=== PATIENT | male | born 1930 | race Caucasian/White ===

== ENCOUNTER 2017-03-19 10:50 | Emergency (ER) | payer MEDICARE ==
[~2017-03-19] VITALS: Ht 172.7 cm; Wt 72.6 kg
[~2017-03-19 10:50] MED LIST: HYDR1TAB8 OP
[2017-03-19] MEDS ORDERED: LATA2.5D5 (12:16)
--- NOTE | 2017-03-19 13:43 | ED General ---
General Chief Complaint: Upper Extremity Stated Complaint: R SIDE SHOULDER AND MID BACK PAIN Nursing Triage Note: pt reports he fell yesterday morning at 1000. he tripped over a chair et flipped on his back. c/o pain between shoulder blades. Nursing Sepsis Screen: No Definite Risk Source of Information: Patient Exam Limitations: No Limitations History of Present Illness Time Seen by Provider: 13:38 Initial Comments The patient's an 86-year-old white male who presents to the emergency room with a chief complaint of thoracic back pain. He reports that yesterday in his home he tripped over a chair and fell heavily onto his back. This occurred at mid morning. He did not believe himself to be injured at that point in time however when he went to bed he experienced considerable pain in the mid thoracic area and found it difficult to sleep except on his side. The pain has continued today and he came here for further evaluation. He reports that his health has been remarkably good and he takes no medications Timing/Duration: 24 Hours Allergies and Home Medications Allergies Coded Allergies: No Known Drug Allergies (Unverified , 09/08/13) Home Medications Latanoprost 2.5 Ml Drops, #3 (Reported) Constitutional: see HPI EENTM: no symptoms reported Respiratory: no symptoms reported Cardiovascular: no symptoms reported Gastrointestinal: no symptoms reported Genitourinary: no symptoms reported Musculoskeletal: no symptoms reported Skin: no symptoms reported Psychiatric/Neurological: No Symptoms Reported Hematologic/Lymphatic: No Symptoms Reported Immunological/Allergic: no symptoms reported Past Kzqfjji-Lhlzkl-Ougecj Hx Patient Social History Recent Foreign Travel: No Contact w/Someone Who Travel: No Recent Infectious Disease Expo: No Immunizations Up To Date Date of Pneumonia Vaccine: Jul 05, 2011 Date of Influenza Vaccine: Aug 07, 2013 Surgeries HX Surgeries: Yes Respiratory Hx Respiratory Disorders: No Cardiovascular Hx Cardiac Disorders: No Neurological Hx Neurological Disorders: Yes (RESTLESS LEG SYNDROME) Genitourinary Hx Genitourinary Disorders: No Gastrointestinal Hx Gastrointestinal Disorders: No Musculoskeletal Hx Musculoskeletal Disorders: Yes (CERVICAL SPINE--S/P SURGERY) Musculoskeletal Disorders: Arthritis, Back Injury Endocrine Hx Endocrine Disorders: No HEENT HX ENT Disorders: Yes HEENT Disorders: Glaucoma Cancer Hx Cancer: No Psychosocial Hx Psychiatric Problems: No Integumentary HX Skin/Integumentary Disorder: No Blood Transfusions Hx Blood Disorders: No Adverse Reaction to a Blood Tr: No Physical Exam Vital Signs Vital Sign - Last 12Hours 03/19/17 12:12 Temp 97.1 Pulse 80 Resp 19 B/P (MAP) 192/84 Capillary Refill : Less Than 3 Seconds General Appearance: Mild Distress Eyes: Bilateral Eye Normal Inspection HEENT: Normal ENT Inspection Neck: Normal Inspection Respiratory: Chest Non Tender, Lungs Clear, Normal Breath Sounds, No Accessory Muscle Use, No Respiratory Distress Cardiovascular: Regular Rate, Rhythm, No Edema, No Gallop, No JVD, No Murmur, Normal Peripheral Pulses Back: Other Progress/Results/Core Measures Results/Orders My Orders Orders - WILLIE HORNE MD Chest Pa/Lat (2 View) (03/19/17 13:05) Vital Signs/I&O Vital Sign - Last 12Hours 03/19/17 12:12 Temp 97.1 Pulse 80 Resp 19 B/P (MAP) 192/84 Blood Pressure Mean: 120 Departure Communication Progress Notes 1415 lateral chest x-ray shows no evidence of compression fractures. Chest x- ray in general shows no evidence of rib fractures. Impression Impression: Primary Impression: upper back contusion Disposition: 01 HOME, SELF-CARE Condition: Stable/Unchanged Departure-Patient Inst. Decision time for Depature: 14:15 Referrals: SAM EMERY MD (PCP/Family) Primary Care Physician Patient Instructions: Contusion (DC) Add. Discharge Instructions: All discharge instructions reviewed with patient and/or family. Voiced understanding. Use heating pad to area as needed. Ibuprofen 600 mg 3 times daily as needed WILLIE HORNE MD March 19, 2017 13:43
--- NOTE | 2017-03-19 13:45 | Diagnostic Imaging Report ---
INDICATION: Fall. Pain. COMPARISON: 09/08/2013. FINDINGS: 2 views of the chest are obtained. Heart size is normal. The pulmonary vessels appear unremarkable. There is no pneumothorax, mediastinal widening, or pleural fluid demonstrated. The lungs appear clear. There are degenerative changes in the spine. No acute fracture is suspected. IMPRESSION: No radiographic evidence of an acute cardiopulmonary abnormality. Dictated by: Dictated on workstation # [id number]
[2017-03-19 14:40] VITALS: BP 182/75
== END 2017-03-19 14:40 | disposition home or self-care (01) ==
LOC: EDUNIT# 10:50 → ER 10:53
DX: S20.221A Contusion of right back wall of thorax, initial encounter (principal); W01.0XXA Fall on same level from slipping, tripping and stumbling without subsequent striking against object, initial encounter; Y92.009 Unspecified place in unspecified non-institutional (private) residence as the place of occurrence of the external cause; Y99.8 Other external cause status
CPT/HCPCS: 71020; 99282

== ENCOUNTER 2017-10-05 20:23 | Emergency (ER) | payer MEDICARE ==
[~2017-10-05] VITALS: Ht 172.7 cm; Wt 72.6 kg
[~2017-10-05 20:23] MED LIST changes: +LATA2.5D5
--- OUTSIDE RECORDS SUMMARY | 2017-10-05 20:28 | XMS REPORT | Continuity of Care Document ---
Author Author [facility] Organization [facility] Address Unknown Phone Unavailable Allergies Active Description Code Type Severity Reaction Onset Reported/Identified Relationship to Patient Clinical Status Yes No Known Drug Allergies [id number] Drug Allergy Unknown N/ A 09/08/2013 Medications Problems Date Dx Coded Attending Type Code Diagnosis Diagnosed By 09/08/2013 ANNE MARIE CHAIREZ DO Ot 719.45 JOINT PAIN-PELVIS 09/08/2013 ANNE MARIE CHAIREZ DO Ot 786.50 CHEST PAIN NOS 09/08/2013 ANNE MARIE CHAIREZ DO Ot 805.06 FX C6 VERTEBRA-CLOSED 09/08/2013 ANNE MARIE CHAIREZ DO Ot 959.01 HEAD INJURY, NOS 09/08/2013 ANNE MARIE CHAIREZ DO Ot E000.8 OTHER EXTERNAL CAUSE STATUS 09/08/2013 ANNE MARIE CHAIREZ DO Ot E001.0 ACTIVITIES INVOLVING WALKING, MARCHING A 09/08/2013 ANNE MARIE CHAIREZ DO Ot E849.4 ACCID IN RECREATION AREA 09/08/2013 ANNE MARIE CHAIREZ DO Ot E880.9 FALL ON STAIR/STEP NEC 03/19/2017 WILLIE HORNE MD Ot M54.6 PAIN IN THORACIC SPINE 03/19/2017 WILLIE HORNE MD Ot S20.221A CONTUSION OF RIGHT BACK WALL OF THORAX , 03/19/2017 WILLIE HORNE MD Ot W01.0XXA FALL SAME LEV FROM SLIP/TRIP W/O STRIKE 03/19/2017 WILLIE HORNE MD Ot Y92.[address] IN UNSP NON-INSTITUT ( PRIVATE 03/19/2017 WILLIE HORNE MD Ot Y99.8 OTHER EXTERNAL CAUSE STATUS Procedures Results Encounters ACCT No. Visit Date/Time Discharge Status Pt. Type Provider Facility Loc./Unit Complaint [id number] 03/19/2017 10:53:00 2016 14:40:00 DIS Emergency WILLIE HORNE MD [facility] ER R SIDE SHOULDER AND MID BACK PAIN [id number] 09/08/2013 17:39:00 2012 19:54:00 DIS Emergency ANNE MARIE CHAIREZ DO [facility] ER FELL; R SHOULDER PAIN [id number] 10/10/2017 08:47:00 PEN Alivia EMERY MD, SAM [facility] REHAB FALLS, DECONDITIONING, OA L SPINE [id number] 10/05/2017 20:24:00 ACT Emergency ANNE MARIE CHAIREZ DO [facility] ER LEG WEAKNESS
[2017-10-05 20:48] LABS: BASOPHILS % (AUTO) 1 % (0-10); EOSINOPHILS # (AUTO) 0.1 10^3/uL (0.0-0.3); EOSINOPHILS % (AUTO) 2 % (0-10); LYMPHOCYTES # (AUTO) 1.2 X 10^3 (1.0-4.0); LYMPHOCYTES % (AUTO) 17 % (12-44); MEAN CORPUSCULAR HEMOGLOBIN 33 PG (25-34); MEAN CORPUSCULAR HGB CONC 35 G/DL (32-36); MEAN CORPUSCULAR VOLUME 92 FL (80-99); MEAN PLATELET VOLUME 9.8 FL (7.4-10.4); MONOCYTES # (AUTO) 0.7 X 10^3 (0.0-1.0); MONOCYTES % (AUTO) 11 % (0-12); NEUTROPHILS # (AUTO) 4.8 X 10^3 (1.8-7.8); NEUTROPHILS % (AUTO) 70 % (42-75); PLATELET COUNT 106 10^3/uL (130-400); RED BLOOD COUNT 4.53 10^6/uL (4.35-5.85); RED CELL DISTRIBUTION WIDTH 14.8 % (10.0-14.5); WHITE BLOOD COUNT 6.8 10^3/uL (4.3-11.0)
--- NOTE | 2017-10-05 20:59 | Diagnostic Imaging Report ---
INDICATION: Fall. TECHNIQUE: Noncontrast axial CT of the head. COMPARISON: 09/08/2013 FINDINGS: The ventricles and cortical sulci are diffusely prominent. There is no midline shift or mass effect identified. There is no extra axial or intraparenchymal hemorrhage seen. Focal areas of decreased attenuation are seen in the subcortical and periventricular white matter. These likely represent chronic small vessel ischemic changes. The bony calvarium is intact. There is a focal area of soft tissue swelling at the posterior left scalp, which may represent chronic scarring, as it appears stable since 2012. The paranasal sinuses are clear. IMPRESSION: 1. No acute intracranial hemorrhage. No focal mass. No CT evidence of acute territorial ischemia. 2. Nonspecific white matter changes most likely representing small vessel ischemic disease. 3. Generalized parenchymal volume loss. Dictated by: Dictated on workstation # [id number]
[2017-10-05 21:08] LABS: ALANINE AMINOTRANSFERASE 21 U/L (0-55); ALBUMIN 4.2 GM/DL (3.2-4.5); ANION GAP 15 MMOL/L (5-14); ASPARTATE AMINO TRANSFERASE 29 U/L (5-34); BILIRUBIN,TOTAL 0.5 MG/DL (0.1-1.0); BLOOD UREA NITROGEN 20 MG/DL (7-18); BUN/CREATININE RATIO 20; CALCIUM 9.1 MG/DL (8.5-10.1); CARBON DIOXIDE 20 MMOL/L (21-32); CHLORIDE 103 MMOL/L (98-107); CREATININE SERUM 0.98 MG/DL (0.60-1.30); GFR ESTIMATED > 60; GLUCOSE 128 MG/DL (70-105); MAGNESIUM 1.9 MG/DL (1.8-2.4); POTASSIUM 3.9 MMOL/L (3.6-5.0); SODIUM 138 MMOL/L (135-145); TOTAL PROTEIN 6.9 GM/DL (6.4-8.2)
--- NOTE | 2017-10-05 21:10 | Diagnostic Imaging Report ---
PATIENT HISTORY: Fall. TECHNIQUE: Single frontal view of the chest. COMPARISON: 03/19/2017. FINDINGS: The lung volumes are normal. No focal consolidation is seen. No large pleural effusion or pneumothorax is seen. The cardiomediastinal silhouette is normal in size and contour. No acute osseous abnormality is seen. Osseous degenerative changes and chronic right rotator cuff injury are noted. IMPRESSION: No acute pulmonary abnormality seen. Dictated by: Dictated on workstation # [id number]
--- NOTE | 2017-10-05 21:12 | Diagnostic Imaging Report ---
Patient History: Fall Technique: Single frontal view of the pelvis Comparison: 09/08/2013 FINDINGS: No acute fracture or dislocation is seen on this single view of the pelvis. Alignment appears normal. Femoral heads are well-seated in the acetabula bilaterally. There are moderate to severe degenerative changes in the left hip and moderate in the right hip. Moderate degenerative changes are seen in the lower lumbar spine. The bilateral sacroiliac joints and pubis symphysis are patent. 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 Dictated by: Dictated on workstation # [id number]
[2017-10-05 21:13] LABS: PROTHROMBIN TIME PATIENT 13.6 SEC (12.2-14.7)
--- NOTE | 2017-10-05 21:13 | ED General ---
General Chief Complaint: General Problems/Pain Stated Complaint: LEG WEAKNESS Nursing Triage Note: PT REPORTS HIS KNEES GAVE OUT ON HIM. HE FELL FORWARD ET LANDED ON FRONT, SCRAPING RIGHT ARM. DENIES HEAD INJURY OR LOC. Nursing Sepsis Screen: No Definite Risk Source of Information: Patient History of Present Illness Time Seen by Provider: 20:28 Initial Comments PT ARRIVES VIA EMS FROM HOME PT STATES "HIS KNEES GIVE OUT" AND HE "CAN'T WALK AT TIMES" --STATES THIS HAS BEEN GOING ON FOR AT LEAST 3 WEEKS--SAW DR. EMERY 2 WEEKS AGO FOR THIS PROBLEM AND STATES HE IS SUPPOSED TO START PHYSICAL THERAPY ON TUESDAY FOR THIS PROBLEM- STATES TONIGHT AROUND 1830, HE WAS AT HOME AND "HIS KNEES GAVE OUT" AND FELL, BUT DENIES ANY INJURY--FRIEND WAS WITH HIM AT THE TIME. PT STATES HE WAS ABLE TO GET BACK UP ON HIS OWN. DID NOT HIT HEAD AND NO LOSS OF CONSCIOUSNESS. NO PAIN ANYWHERE NO CHEST PAIN , PALPITATIONS, SHORTNESS OF BREATH, DIZZINESS NO PARESTHESIAS OR MOTOR DEFICITS PT STATES "I CAN WALK NOW" --STATES FOR THE LAST 3 DAYS HE HAS BEEN WALKING AT THE MALL, DOING AT LEAST 4 LAPS AROUND THE MALL, WITHOUT ANY DIFFICULTY. PT STATES HE DRINKS "OCCASIONALLY" AND STATES HE HAS HAD "A COUPLE" OF DRINKS TONIGHT--LIQUOR WITH A LITTLE WATER ADDED. PCP: DR. EMERY Allergies and Home Medications Allergies Coded Allergies: No Known Drug Allergies (Unverified , 09/08/13) Home Medications Latanoprost 2.5 Ml Drops, #3 (Reported) Constitutional: see HPI EENTM: no symptoms reported Respiratory: no symptoms reported, No dyspnea on exertion, No short of breath Cardiovascular: no symptoms reported, No chest pain, No edema, No palpitations , No syncope Gastrointestinal: no symptoms reported Genitourinary: no symptoms reported Musculoskeletal: see HPI Skin: no symptoms reported Psychiatric/Neurological: See HPI, Denies Headache, Denies Numbness, Denies Paresthesia, Denies Seizure, Denies Tingling, Denies Tremors Past Gfvurjz-Qsydqo-Rlwenz Hx Patient Social History Alcohol Use: Occasionally Uses (CLAIMS "OCCASIONALLY" ) Recreational Drug Use: No Smoking Status: Former Smoker (< 1 PPD, QUIT OVER 30 YEARS, AGO, PER PT ON ) Recent Foreign Travel: No Contact w/Someone Who Travel: No Recent Infectious Disease Expo: No Recent Hopitalizations: No Immunizations Up To Date Date of Pneumonia Vaccine: Jul 05, 2011 Date of Influenza Vaccine: Aug 01, 2017 Seasonal Allergies Seasonal Allergies: No Surgeries History of Surgeries: Yes (LEFT SHOULDER SURGERY; BILATERAL KNEE REPLACEMENTS; C-SPINE SURGERY) Surgeries: Eye Surgery, Joint Replacement, Orthopedic Respiratory History of Respiratory Disorde: No Cardiovascular History of Cardiac Disorders: No Neurological History of Neurological Disord: Yes (RESTLESS LEG SYNDROME) Genitourinary History of Genitourinary Disor: No Gastrointestinal History of Gastrointestinal Di: No Musculoskeletal History of Musculoskeletal Dis: Yes (CERVICAL SPINE SURGERY; BILATERAL KNEE REPLACEMENTS; LEFT SHOULDER SURGERY) Musculoskeletal Disorders: Arthritis, Back Injury Endocrine History of Endocrine Disorders: No HEENT History of HEENT Disorders: Yes HEENT Disorders: Cataract, Glaucoma Cancer History of Cancer: No Psychosocial History of Psychiatric Problem: No Integumentary History of Skin or Integumenta: No Blood Transfusions History of Blood Disorders: No Adverse Reaction to a Blood Tr: No Physical Exam Vital Signs Vital Sign - Last 12Hours 10/05/17 10/05/17 20:27 22:42 Temp 97.4 Pulse 83 Resp 18 B/P (MAP) 141/71 (94) Pulse Ox 98 O2 Delivery Room Air Capillary Refill : Less Than 3 Seconds General Appearance: No Apparent Distress, WD/WN, Other (REEKS OF ALCOHOL) HEENT: PERRL/EOMI Neck: Full Range of Motion, Normal Inspection, Non Tender, Supple Respiratory: Normal Breath Sounds, No Accessory Muscle Use, No Respiratory Distress Cardiovascular: Regular Rate, Rhythm, No Edema, No JVD, No Murmur, Normal Peripheral Pulses Gastrointestinal: Normal Bowel Sounds, No Organomegaly, No Pulsatile Mass, Non Tender, Soft Back: Normal Inspection, No Vertebral Tenderness Extremity: Normal Capillary Refill, Normal Inspection, Normal Range of Motion, Non Tender, No Calf Tenderness, No Pedal Edema Neurologic/Psychiatric: Alert, Oriented x3, No Motor/Sensory Deficits, Normal Mood/Affect, automation architect II-XII Norm as Tested, No Abnormal Cerebellar Tests, Other (PT ABLE TO AMBULATE ON HIS OWN WITHOUT DIFFICULTY) Reflexes: 1+ Knee (R), 1+ Knee (L) Skin: Normal Color, Warm/Dry, No Rash Progress/Results/Core Measures Suspected Sepsis Recent Fever Within 48 Hours: No Infection Criteria Present: None New/Unexplained Altered Menta: No Sepsis Screen: No Definite Risk Sepsis Diagnosis: SIRS Temperature:97.4 Pulse: 83 Respiratory Rate: 18 Laboratory Tests 10/05/17 20:38: White Blood Count 6.8 Blood Pressure 141 /71 Mean: 94 Laboratory Tests 10/05/17 20:38: Creatinine 0.98, INR Comment 1.0, Platelet Count 106L, Total Bilirubin 0.5 Results/Orders Lab Results Laboratory Tests Test 10/05/17 20:38 Range/Units White Blood Count 6.8 4.3-11.0 10^3/uL Red Blood Count 4.53 4.35-5.85 10^6/uL Hemoglobin 14.8 13.3-17.7 G/DL Hematocrit 42 40-54 % Mean Corpuscular Volume 92 80-99 FL Mean Corpuscular Hemoglobin 33 25-34 PG Mean Corpuscular Hemoglobin Concent 35 32-36 G/DL Red Cell Distribution Width 14.8 H 10.0-14.5 % Platelet Count 106 L 130-400 10^3/uL Mean Platelet Volume 9.8 7.4-10.4 FL Neutrophils (%) (Auto) 70 42-75 % Lymphocytes (%) (Auto) 17 12-44 % Monocytes (%) (Auto) 11 0-12 % Eosinophils (%) (Auto) 2 0-10 % Basophils (%) (Auto) 1 0-10 % Neutrophils # (Auto) 4.8 1.8-7.8 X 10^3 Lymphocytes # (Auto) 1.2 1.0-4.0 X 10^3 Monocytes # (Auto) 0.7 0.0-1.0 X 10^3 Eosinophils # (Auto) 0.1 0.0-0.3 10^3/uL Basophils # (Auto) 0.0 0.0-0.1 10^3/uL Prothrombin Time 13.6 12.2-14.7 SEC INR Comment 1.0 0.8-1.4 Activated Partial Thromboplast Time 25 24-35 SEC Sodium Level 138 135-145 MMOL/L Potassium Level 3.9 3.6-5.0 MMOL/L Chloride Level 103 98-107 MMOL/L Carbon Dioxide Level 20 L 21-32 MMOL/L Anion Gap 15 H 5-14 MMOL/L Blood Urea Nitrogen 20 H 7-18 MG/DL Creatinine 0.98 0.60-1.30 MG/DL Estimat Glomerular Filtration Rate > 60 BUN/Creatinine Ratio 20 Glucose Level 128 H 70-105 MG/DL Calcium Level 9.1 8.5-10.1 MG/DL Magnesium Level 1.9 1.8-2.4 MG/DL Total Bilirubin 0.5 0.1-1.0 MG/DL Aspartate Amino Transf (AST/SGOT) 29 5-34 U/L Alanine Aminotransferase (ALT/SGPT) 21 0-55 U/L Alkaline Phosphatase 72 40-136 U/L Troponin I < 0.30 <0.30 NG/ML Total Protein 6.9 6.4-8.2 GM/DL Albumin 4.2 3.2-4.5 GM/DL TSH [place] Testing 1.82 0.35-4.94 UIU/ML Serum Alcohol 140 H <10 MG/DL My Orders Orders - ANNE MARIE CHAIREZ DO Saline Lock/Iv-Start (10/05/17 20:33) Ekg Tracing (10/05/17 20:33) Monitor-Rhythm Ecg Trace Only (10/05/17 20:33) Ct Head Wo-R/O Stroke (10/05/17 20:33) Cbc With Automated Diff (10/05/17 20:33) Comprehensive Metabolic Panel (10/05/17 20:33) Magnesium (10/05/17 20:33) Protime With Inr (10/05/17 20:33) Partial Thromboplastin Time (10/05/17 20:33) Thyroid Analyzer (10/05/17 20:33) Chest 1 View, Ap/Pa Only (10/05/17 20:33) Pelvis (10/05/17 20:33) Troponin I (10/05/17 20:33) Alcohol (10/05/17 21:32) Vital Signs/I&O Vital Sign - Last 12Hours 10/05/17 10/05/17 20:27 22:42 Temp 97.4 Pulse 83 86 Resp 18 16 B/P (MAP) 141/71 (94) Pulse Ox 98 O2 Delivery Room Air Room Air Capillary Refill : Less Than 3 Seconds Blood Pressure Mean: 94 ECG Initial ECG Impression Time: 20:39 Initial ECG Rate: 82 Initial ECG Rhythm: Normal Sinus Initial ECG Impression: 1st Degree AV Block (RBBB) Initial ECG Comparisson: No Previous ECG Available Diagnostic Imaging Comments CT HEAD--NO ACUTE PROCESS, CHRONIC CHANGES CXR--NO ACUTE PROCESS PER RADIOLOGIST REPORTS @ 2113 Reviewed: Reviewed by Me Departure Impression Impression: Primary Impression: TRANSIENT WEAKNESS Additional Impression: Alcohol intoxication Disposition: 01 HOME, SELF-CARE Condition: Stable Departure-Patient Inst. Referrals: SAM EMERY MD (PCP/Family) Primary Care Physician Patient Instructions: Generalized Weakness (DC) Add. Discharge Instructions: SLOW POSITION CHANGES KEEP APPOINTMENT FOR PHYSICAL THERAPY NEXT WEEK FOLLOW UP WITH DR. EMERY THIS WEEK RETURN TO ER IF SYMPTOMS WORSEN All discharge instructions reviewed with patient and/or family. Voiced understanding. ANNE MARIE CHAIREZ DO Oct 05, 2017 21:13
[2017-10-05 21:27] LABS: TROPONIN I < 0.30 NG/ML (<0.30)
[2017-10-05 22:42] VITALS: BP 154/92
== END 2017-10-05 22:42 | disposition home or self-care (01) ==
LOC: EDUNIT# 20:23 → ER 20:24
DX: M62.81 Muscle weakness (generalized) (principal); F10.129 Alcohol abuse with intoxication, unspecified; G25.81 Restless legs syndrome; Z87.891 Personal history of nicotine dependence; Z96.661 Presence of right artificial ankle joint; Z96.662 Presence of left artificial ankle joint; Z98.890 Other specified postprocedural states
CPT/HCPCS: 36415; 70450; 71010; 72170; 80053; 80320; 83735; 84443; 84484; 85025; 85610; 85730; 93005; 93041

== ENCOUNTER 2017-11-11 11:06 | Outpatient (RCR) | payer MEDICARE | END 2017-11-11 11:53 | disposition home or self-care (01) | PROVIDERS: ATTEND Internal Medicine | DX: M47.816 Spondylosis without myelopathy or radiculopathy, lumbar region (principal); R29.6 Repeated falls; R53.1 Weakness ==

== ENCOUNTER 2019-01-25 09:24 | Outpatient (RCR) | payer MEDICARE | END 2019-01-31 | disposition home or self-care (01) | PROVIDERS: ATTEND Internal Medicine | DX: R26.81 Unsteadiness on feet (principal); Z91.81 History of falling ==

== ENCOUNTER 2019-02-06 09:49 | Outpatient (RCR) | payer MEDICARE | END 2019-02-23 13:18 | disposition home or self-care (01) | PROVIDERS: ATTEND Internal Medicine | DX: R26.81 Unsteadiness on feet (principal); Z91.81 History of falling ==

== ENCOUNTER 2019-06-25 12:39 | Emergency (ER) | payer MEDICARE ==
[~2019-06-25] VITALS: Ht 172.7 cm; Wt 78.5 kg
[2019-06-25 13:19] LABS: BASOPHILS % (AUTO) 0 % (0-10); EOSINOPHILS # (AUTO) 0.2 10^3/uL (0.0-0.3); EOSINOPHILS % (AUTO) 2 % (0-10); HEMATOCRIT 48 % (40-54); HEMOGLOBIN 16.5 G/DL (13.3-17.7); LYMPHOCYTES # (AUTO) 1.4 X 10^3 (1.0-4.0); LYMPHOCYTES % (AUTO) 15 % (12-44); MEAN CORPUSCULAR HEMOGLOBIN 31 PG (25-34); MEAN CORPUSCULAR HGB CONC 34 G/DL (32-36); MEAN CORPUSCULAR VOLUME 90 FL (80-99); MEAN PLATELET VOLUME 10.2 FL (7.4-10.4); MONOCYTES # (AUTO) 1.1 X 10^3 (0.0-1.0); MONOCYTES % (AUTO) 11 % (0-12); NEUTROPHILS # (AUTO) 6.9 X 10^3 (1.8-7.8); NEUTROPHILS % (AUTO) 72 % (42-75); PLATELET COUNT 131 10^3/uL (130-400); RED CELL DISTRIBUTION WIDTH 15.5 % (10.0-14.5); WHITE BLOOD COUNT 9.6 10^3/uL (4.3-11.0)
--- NOTE | 2019-06-25 13:28 | ED Fall/Injury ---
General Chief Complaint: Trauma-Non Activation Stated Complaint: FALL Nursing Triage Note: PT TO RM 5 BY EMS FROM [facility] WITH COMPLAINT OF UNWITNESSED FALL. PT STATES HE DOES NOT KNOW WHAT CAUSED HIM TO FALL. DENIES HITTING HEAD. COMPLAINING OF UPPER BACK PAIN. PT STATES HE HAS HAD MULTIPLE FALLS RECENTLY. Source: patient Exam Limitations: no limitations History of Present Illness Date Seen by Provider: Jun 25, 2019 Time Seen by Provider: 12:59 Initial Comments Here with report of fall today. States that he pulls not infrequently. Does have skin tear from previous fall a few days ago. Today he was walking without his walker when he fell backward and landed on his back. Denies hitting his head but does not describe the incident well. Does have bruise to his back on the left lower rib margin and abdomen seems to be rigid. She denies abdominal pain. States that the rib injuries from fall a few days ago. Does have skin tear to the left arm that is Steri-Stripped but also has expansion of the wound apparently from the fall today. Denies loss of consciousness. Occurred: just prior to arrival (approximately 30-45 minutes ago) Severity: mild Injuries/Pain Location: back Context: lost balance Loss of Consciousness: no loss of consciousness Modifying Factors: Improves With Immobilization; Worse With Movement Associated Symptoms (Fall): No Abdominal Pain, No Chest Pain; Confusion (may be baseline); No Headache, No Neck Pain, No Shortness of Air Allergies and Home Medications Allergies Coded Allergies: No Known Drug Allergies (Unverified , 09/08/13) Patient Home Medication List Home Medication List Reviewed: Yes Review of Systems Review of Systems Constitutional: see HPI; No chills, No fever Eyes: No Symptoms Reported Ears, Nose, Mouth, Throat: no symptoms reported Respiratory: No cough, No short of breath Cardiovascular: No chest pain, No edema, No palpitations Gastrointestinal: no symptoms reported Genitourinary: no symptoms reported Musculoskeletal: back pain Skin: change in color, lesions Psychiatric/Neurological: See HPI All Other Systems Reviewed Negative Unless Noted: Yes Past Ncjpswf-Lrruzr-Mjusju Hx Past Med/Social Hx: Reviewed Nursing Past Med/Soc Hx Patient Social History Alcohol Use: Occasionally Uses Recreational Drug Use: No Smoking Status: Former Smoker Recent Foreign Travel: No Contact w/Someone Who Travel: No Recent Infectious Disease Expo: No Recent Hopitalizations: No Physical Abuse: No Sexual Abuse: No Mistreated: No Fear: No Immunizations Up To Date Date of Pneumonia Vaccine: Jul 05, 2011 Date of Influenza Vaccine: Aug 01, 2017 Seasonal Allergies Seasonal Allergies: No Past Medical History Surgeries: Yes (LEFT SHOULDER SURGERY; BILATERAL KNEE REPLACEMENTS; C-SPINE SURGERY) Eye Surgery, Joint Replacement, Orthopedic Respiratory: No Cardiac: No Neurological: Yes (RESTLESS LEG SYNDROME) Genitourinary: No Gastrointestinal: No Musculoskeletal: Yes (CERVICAL SPINE SURGERY; BILATERAL KNEE REPLACEMENTS; LEFT SHOULDER SURGERY) Arthritis, Back Injury Endocrine: No HEENT: Yes Cataract, Glaucoma Cancer: No Psychosocial: No Integumentary: No Blood Disorders: No Adverse Reaction/Blood Tranf: No Family Medical History Reviewed Nursing Family Hx No Pertinent Family Hx Physical Exam Vital Signs Vital Signs - First Documented 06/25/19 12:40 Temp 97.1 Pulse 72 Resp 16 B/P (MAP) 177/85 (115) Pulse Ox 97 O2 Delivery Room Air Capillary Refill : Less Than 3 Seconds Height, Weight, BMI Height: 5'8.00" Weight: 173lbs. oz. 78.162146fw; BMI Method:Stated General Appearance: WD/WN, no apparent distress HEENT: PERRL/EOMI, pharynx normal Neck: full range of motion, supple Cardiovascular: regular rate, rhythm, no murmur Respiratory: lungs clear, normal breath sounds Gastrointestinal: non tender, other (rigid) Back: No vertebral tenderness; other (left lower lateral rib margin) Extremities: normal range of motion, non-tender, pelvis stable Neurologic/Psychiatric: alert, oriented x 3 Skin: warm/dry, ecchymosis (left lateral lower rib margin 6 x 6 cm), other (skin tear to the left mid forearm) [place] Coma Score Best Eye Response: (4) Open Spontaneously Best Verbal Response: (5) Oriented Best Motor Response: (6) Obeys Commands Progress/Results/Core Measures Results/Orders Lab Results Laboratory Tests Test 06/25/19 13:05 06/25/19 15:35 Range/Units White Blood Count 9.6 4.3-11.0 10^3/uL Red Blood Count 5.37 4.35-5.85 10^6/uL Hemoglobin 16.5 13.3-17.7 G/DL Hematocrit 48 40-54 % Mean Corpuscular Volume 90 80-99 FL Mean Corpuscular Hemoglobin 31 25-34 PG Mean Corpuscular Hemoglobin Concent 34 32-36 G/DL Red Cell Distribution Width 15.5 H 10.0-14.5 % Platelet Count 131 130-400 10^3/uL Mean Platelet Volume 10.2 7.4-10.4 FL Neutrophils (%) (Auto) 72 42-75 % Lymphocytes (%) (Auto) 15 12-44 % Monocytes (%) (Auto) 11 0-12 % Eosinophils (%) (Auto) 2 0-10 % Basophils (%) (Auto) 0 0-10 % Neutrophils # (Auto) 6.9 1.8-7.8 X 10^3 Lymphocytes # (Auto) 1.4 1.0-4.0 X 10^3 Monocytes # (Auto) 1.1 H 0.0-1.0 X 10^3 Eosinophils # (Auto) 0.2 0.0-0.3 10^3/uL Basophils # (Auto) 0.0 0.0-0.1 10^3/uL Sodium Level 138 135-145 MMOL/L Potassium Level 4.6 3.6-5.0 MMOL/L Chloride Level 101 98-107 MMOL/L Carbon Dioxide Level 27 21-32 MMOL/L Anion Gap 10 5-14 MMOL/L Blood Urea Nitrogen 19 H 7-18 MG/DL Creatinine 1.08 0.60-1.30 MG/DL Estimat Glomerular Filtration Rate > 60 BUN/Creatinine Ratio 18 Glucose Level 160 H 70-105 MG/DL Calcium Level 9.7 8.5-10.1 MG/DL Corrected Calcium 9.5 8.5-10.1 MG/DL Total Bilirubin 0.6 0.1-1.0 MG/DL Aspartate Amino Transf (AST/SGOT) 23 5-34 U/L Alanine Aminotransferase (ALT/SGPT) 15 0-55 U/L Alkaline Phosphatase 92 40-136 U/L C-Reactive Protein High Sensitivity 0.47 0.00-0.50 MG/DL Total Protein 7.4 6.4-8.2 GM/DL Albumin 4.3 3.2-4.5 GM/DL Urine Color YELLOW Urine Clarity CLEAR Urine pH 5 5-9 Urine Specific [place] 1.015 L 1.016-1.022 Urine Protein 2+ H NEGATIVE Urine Glucose (UA) NEGATIVE NEGATIVE Urine Ketones NEGATIVE NEGATIVE Urine Nitrite NEGATIVE NEGATIVE Urine Bilirubin NEGATIVE NEGATIVE Urine Urobilinogen NORMAL NORMAL MG/DL Urine Leukocyte Esterase NEGATIVE NEGATIVE Urine RBC (Auto) NEGATIVE NEGATIVE Urine RBC NONE /HPF Urine WBC NONE /HPF Urine Squamous Epithelial Cells RARE /HPF Urine Crystals NONE /LPF Urine Bacteria NEGATIVE /HPF Urine Casts NONE /LPF Urine Mucus NEGATIVE /LPF Urine Culture Indicated NO My Orders Orders - BENEDICTO SIMPSON MD Cbc With Automated Diff (06/25/19 13:02) Comprehensive Metabolic Panel (06/25/19 13:02) Hs C Reactive Protein (06/25/19 13:02) I-Stat Bedside Testing (06/25/19 13:02) Chest Pa/Lat (2 View) (06/25/19 13:02) Ribs, Left 2-3 Views (06/25/19 13:02) Ed Iv/Invasive Line Start (06/25/19 13:02) Ct Abdomen/Pelvis W (06/25/19 13:22) Ct Head/Cervical Spine Wo (06/25/19 13:22) Ua Culture If Indicated (06/25/19 15:01) Vital Signs/I&O 06/25/19 12:40 Temp 97.1 Pulse 72 Resp 16 B/P (MAP) 177/85 (115) Pulse Ox 97 O2 Delivery Room Air Blood Pressure Mean: 115 iStat Bedside Lab Testing Sodium (Na): 138.00 Potassium (K): 4.40 Chloride (CI): 99.00 TCO2: 26.00 Glucose (Glu): 162.00 Urea Nitrogen (BUN)/Urea: 22.00 Creatinine (Crea): 1.00 Anion Gap*: 18.00 Progress Progress Note : Progress Note Seen and evaluated. IV, labs, i-STAT, chest x-ray and CT abdomen and pelvis ordered. We will also add CT head and neck given history of fall and somewhat confused related to events. Monitor patient. 1510: CT results reviewed. We will add UA given findings on CT abdomen and pelvis. Wound care to left arm by nursing. Monitor patient. We did add UA studies. 1626: UA negative. Family at bedside. He has had some waxing and waning symptoms over the past couple of days especially since fall. Overall better now. No indication for admission. Discharge back to assisted with return precautions. Patient and family verbalize understanding instructions and agreement with plan. Patient highly encouraged to use his walker. Diagnostic Imaging Comments [facility] [place], [place] NAME: HERMINIA BALDWIN [facility] REC#: [id number] PT STATUS: REG ER : 1930 PHYSICIAN: BENEDICTO SIMPSON MD ADMIT DATE: 06/25/19/ER Draft Date of Exam:06/25/19 CT ABDOMEN/PELVIS W PROCEDURE: CT abdomen and pelvis with contrast. TECHNIQUE: Multiple contiguous axial images were obtained through the abdomen and pelvis after administration of intravenous contrast. Auto Exposure Controls were utilized during the CT exam to meet ALARA standards for radiation dose reduction. INDICATION: Fall. COMPARISON: None available. FINDINGS: The visualized lung bases are clear. The liver and spleen are unremarkable. The adrenal glands are unremarkable. The pancreas is unremarkable. Gallbladder is unremarkable. The kidneys and bilateral ureters are unremarkable. Scattered vascular calcifications without aneurysmal dilatation of abdominal aorta. Tiny fat-containing umbilical hernia. Mural thickening of the urinary bladder. Mild trabeculation of the urinary bladder. The prostate gland is enlarged. Small fat-containing bilateral inguinal hernias. Colonic diverticulosis without CT evidence of diverticulitis. No bowel obstruction or pneumatosis. No significant adenopathy, free air, or free fluid within abdomen or pelvis. Scattered osseous degenerative changes without acute osseous abnormality. IMPRESSION: Trabeculation and mural thickening of the urinary bladder. 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 Underlying cystitis not excluded. Recommend correlation with urinary analysis. Colonic diverticulosis without CT evidence of diverticulitis. Additional findings as described above. Dictated on workstation # [id number] Dict: 06/25/19 1440 Trans: 06/25/19 1446 [id number] Interpreted by: ESVIN HOGAN MD Electronically signed by: Diagonstic Imaging: CT Plain Films/CT/US/NM/MRI: c-spine, head Comments [facility]. [place], [place] NAME: HERMINIA BALDWIN [facility] REC#: [id number] PT STATUS: REG ER : 1930 PHYSICIAN: BENEDICTO SIMPSON MD ADMIT DATE: 06/25/19/ER Draft Date of Exam:06/25/19 CT HEAD/CERVICAL SPINE WO PROCEDURE: CT head and CT cervical spine without contrast. TECHNIQUE: Multiple contiguous axial images were obtained through the brain and cervical spine without the use of intravenous contrast. Sagittal and coronal reformations through the cervical spine were then performed. Auto Exposure Controls were utilized during the CT exam to meet ALARA standards for radiation dose reduction. INDICATION: Fall. COMPARISON with 10/27/2018. CT HEAD: Diffuse cortical atrophy is again noted with diffuse periventricular white matter changes. The ventricles are slightly prominent. There are no mass effect. Basal cisterns are clear. CP angles are normal. Mastoid air cells are well-aerated and clear. Paranasal sinuses are clear. No evidence of calvarial fracture. IMPRESSION: Chronic cortical atrophy and white matter changes with no acute findings when compared with previous exam. CT CERVICAL SPINE: Sagittal and coronal reformatted images. Good alignment of the vertebral bodies. Body heights are well-maintained. Large bony bridging osteophytes anteriorly are fusing C3-C7. Mild posterior osteophyte is present causing mild to moderate encroachment upon the lateral recesses. Facets show degenerative change. The atlantoaxial joint is in good alignment. The surrounding soft tissues are normal. There are no fractures. IMPRESSION: Advanced degenerative cervical spondylosis without acute abnormality. Dictated on workstation # [id number] Dict: 06/25/19 1439 Trans: 06/25/19 1449 [id number] Interpreted by: DORINDA BAIG MD Electronically signed by: Sumayagonstic Imaging: Xray Plain Films/CT/US/NM/MRI: chest Comments [facility] [place], [place] NAME: HERMINIA BALDWIN [facility] REC#: [id number] PT STATUS: REG ER : 1930 PHYSICIAN: BENEDICTO SIMPSON MD ADMIT DATE: 06/25/19/ER Draft Date of Exam:06/25/19 CHEST PA/LAT (2 VIEW) INDICATION: Fall. FINDINGS: PA and lateral chest. Lungs are well-aerated and clear. Heart is not enlarged. No pulmonary edema. No pneumothorax or pleural effusion. No rib fractures. IMPRESSION: Negative PA and lateral chest. Dictated on workstation # [id number] Dict: 06/25/19 1441 Trans: 06/25/19 1447 [id number] [id number] Interpreted by: DORINDA BAIG MD Electronically signed by: Juni Imaging: Xray Plain Films/CT/US/NM/MRI: other Comments NAME: HERMINIA BALDWIN [facility] REC#: [id number] PHYSICIAN: BENEDICTO SIMPSON MD CC: ESVIN HOGAN MD; BENEDICTO SIMPSON MD Page 1 of 1 RADIOLOGY REPORT [facility] [place], [place] CC: ESVIN HOGAN MD; BENEDICTO SIMPSON MD Page 1 of 1 RADIOLOGY REPORT NAME: HERMINIA BALDWIN [facility] REC#: [id number] PT STATUS: REG ER : 1930 PHYSICIAN: BENEDICTO SIMPSON MD ADMIT DATE: 06/25/19/ER Signed Date of Exam: 06/25/19 RIBS, LEFT 2-3 VIEWS INDICATION: Falls, pain. COMPARISON: 10/05/2017 TECHNIQUE: Three radiographs of left-sided ribs dated 06/25/2019. FINDINGS: Moderate degenerative changes within the left shoulder. Very minimal cortical offset and undulation is noted involving anterolateral left sixth rib without discrete fracture plane. No additional displaced or healing rib fracture. No significant pleural effusion or pneumothorax. Scattered vascular calcifications. Contrast is identified within the renal collecting system related to recent CT examination. Prominent degenerative changes within the spine. IMPRESSION: Cortical undulation associated with the anterolateral left sixth rib. This could relate to an age-indeterminate nondisplaced rib fracture. There is, however, no significant pleural effusion or pneumothorax. Recommend correlation for focal pain at this location. Dictated by: Dictated on workstation # [id number] Dict: 06/25/19 1443 Trans: 06/25/19 1458 Interpreted by: ESVIN HOGAN MD Electronically signed by: ESVIN HOGAN MD 06/25/19 145 Departure Impression Primary Impression: Fall Qualified Codes: W19.XXXA - Unspecified fall, initial encounter Additional Impression: Abrasion Disposition: 01 HOME, SELF-CARE Condition: Stable Departure-Patient Inst. Decision time for Depature: 16:28 Referrals: SAM EMERY MD (PCP/Family) Primary Care Physician Patient Instructions: Preventing Falls, Skin Abrasions (DC) Add. Discharge Instructions: All discharge instructions reviewed with patient and/or family. Voiced understanding. Use local wound care policy for skin tear on the left arm. You should use your walker at all times when moving about. Continue home medications as previously prescribed. Drink plenty of fluids and eat a normal diet. Follow up with your Dr. next week for recheck. Return for worse pain, fever, vomiting, weakness, breathing problems or other concerns as needed. Copy Copies To 1: SAM EMERY MD, TIMOTHY D MD Jun 25, 2019 13:28
[2019-06-25 13:40] LABS: ALANINE AMINOTRANSFERASE 15 U/L (0-55); ALBUMIN 4.3 GM/DL (3.2-4.5); ALKALINE PHOSPHATASE 92 U/L (40-136); BILIRUBIN,TOTAL 0.6 MG/DL (0.1-1.0); BUN/CREATININE RATIO 18; CALCIUM 9.7 MG/DL (8.5-10.1); CARBON DIOXIDE 27 MMOL/L (21-32); CHLORIDE 101 MMOL/L (98-107); CREATININE SERUM 1.08 MG/DL (0.60-1.30); GFR ESTIMATED > 60; GLUCOSE 160 MG/DL (70-105); POTASSIUM 4.6 MMOL/L (3.6-5.0); SODIUM 138 MMOL/L (135-145); TOTAL PROTEIN 7.4 GM/DL (6.4-8.2)
--- NOTE | 2019-06-25 14:46 | Diagnostic Imaging Report ---
PROCEDURE: CT abdomen and pelvis with contrast. TECHNIQUE: Multiple contiguous axial images were obtained through the abdomen and pelvis after administration of intravenous contrast. Auto Exposure Controls were utilized during the CT exam to meet ALARA standards for radiation dose reduction. INDICATION: Fall. COMPARISON: None available. FINDINGS: The visualized lung bases are clear. The liver and spleen are unremarkable. The adrenal glands are unremarkable. The pancreas is unremarkable. Gallbladder is unremarkable. The kidneys and bilateral ureters are unremarkable. Scattered vascular calcifications without aneurysmal dilatation of abdominal aorta. Tiny fat-containing umbilical hernia. Mural thickening of the urinary bladder. Mild trabeculation of the urinary bladder. The prostate gland is enlarged. Small fat-containing bilateral inguinal hernias. Colonic diverticulosis without CT evidence of diverticulitis. No bowel obstruction or pneumatosis. No significant adenopathy, free air, or free fluid within abdomen or pelvis. Scattered osseous degenerative changes without acute osseous abnormality. IMPRESSION: Trabeculation and mural thickening of the urinary bladder. 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 Underlying cystitis not excluded. Recommend correlation with urinary analysis. Colonic diverticulosis without CT evidence of diverticulitis. Additional findings as described above. Dictated by: Dictated on workstation # [id number]
--- NOTE | 2019-06-25 14:48 | Diagnostic Imaging Report ---
INDICATION: Fall. FINDINGS: PA and lateral chest. Lungs are well-aerated and clear. Heart is not enlarged. No pulmonary edema. No pneumothorax or pleural effusion. No rib fractures. IMPRESSION: Negative PA and lateral chest. Dictated by: Dictated on workstation # [id number]
--- NOTE | 2019-06-25 14:50 | Diagnostic Imaging Report ---
PROCEDURE: CT head and CT cervical spine without contrast. TECHNIQUE: Multiple contiguous axial images were obtained through the brain and cervical spine without the use of intravenous contrast. Sagittal and coronal reformations through the cervical spine were then performed. Auto Exposure Controls were utilized during the CT exam to meet ALARA standards for radiation dose reduction. INDICATION: Fall. COMPARISON with 10/27/2018. CT HEAD: Diffuse cortical atrophy is again noted with diffuse periventricular white matter changes. The ventricles are slightly prominent. There are no mass effect. Basal cisterns are clear. CP angles are normal. Mastoid air cells are well-aerated and clear. Paranasal sinuses are clear. No evidence of calvarial fracture. IMPRESSION: Chronic cortical atrophy and white matter changes with no acute findings when compared with previous exam. CT CERVICAL SPINE: Sagittal and coronal reformatted images. Good alignment of the vertebral bodies. Body heights are well-maintained. Large bony bridging osteophytes anteriorly are fusing C3-C7. Mild posterior osteophyte is present causing mild to moderate encroachment upon the lateral recesses. Facets show degenerative change. The atlantoaxial joint is in good alignment. The surrounding soft tissues are normal. There are no fractures. IMPRESSION: Advanced degenerative cervical spondylosis without acute abnormality. Dictated by: Dictated on workstation # [id number]
--- NOTE | 2019-06-25 14:51 | Diagnostic Imaging Report ---
INDICATION: Falls, pain. COMPARISON: 10/05/2017 TECHNIQUE: Three radiographs of left-sided ribs dated 06/25/2019. FINDINGS: Moderate degenerative changes within the left shoulder. Very minimal cortical offset and undulation is noted involving anterolateral left sixth rib without discrete fracture plane. No additional displaced or healing rib fracture. No significant pleural effusion or pneumothorax. Scattered vascular calcifications. Contrast is identified within the renal collecting system related to recent CT examination. Prominent degenerative changes within the spine. IMPRESSION: Cortical undulation associated with the anterolateral left sixth rib. This could relate to an age-indeterminate nondisplaced rib fracture. There is, however, no significant pleural effusion or pneumothorax. Recommend correlation for focal pain at this location. Dictated by: Dictated on workstation # [id number]
--- NOTE | 2019-06-25 15:23 | NUR ---
SKIN TEAR ON L FOREARM CLEANED AND MEPILEX APPLIED
[2019-06-25 15:45] LABS: BILIRUBIN,URINE NEGATIVE (NEGATIVE); CLARITY,URINE CLEAR; COLOR,URINE YELLOW; GLUCOSE, URINE (UA) NEGATIVE (NEGATIVE); KETONES,URINE NEGATIVE (NEGATIVE); LEUKOCYTE ESTERASE ,URINE NEGATIVE (NEGATIVE); NITRITE,URINE NEGATIVE (NEGATIVE); PH,URINE 5 (5-9); PROTEIN,URINE 2+ (NEGATIVE); UROBILINOGEN,URINE NORMAL (NORMAL)
[2019-06-25 15:56] LABS: BACTERIA,URINE NEGATIVE /HPF; SQUAMOUS EPITHELIAL CELL,UR RARE /HPF
[2019-06-25 16:38] VITALS: BP 127/70
== END 2019-06-25 16:38 | disposition home or self-care (01) ==
LOC: EDUNIT# 12:39 → ER 12:40
DX: S51.802A Unspecified open wound of left forearm, initial encounter (principal); S20.222A Contusion of left back wall of thorax, initial encounter; R40.2142 Coma scale, eyes open, spontaneous, at arrival to emergency department; R40.2252 Coma scale, best verbal response, oriented, at arrival to emergency department; R40.2362 Coma scale, best motor response, obeys commands, at arrival to emergency department; Z87.891 Personal history of nicotine dependence; Z96.653 Presence of artificial knee joint, bilateral; W01.0XXA Fall on same level from slipping, tripping and stumbling without subsequent striking against object, initial encounter
CPT/HCPCS: 36415; 70450; 71046; 71100; 72125; 74177; 80053; 81000; 85025; 86141

== ENCOUNTER 2019-12-03 11:05 | Inpatient (IN) | payer MEDICARE ==
[~2019-12-03] VITALS: Ht 167 cm; Wt 84.0 kg
--- NOTE | 2019-12-03 11:46 | Diagnostic Imaging Report ---
PROCEDURE: CT head wo r/o stroke. TECHNIQUE: Multiple contiguous axial images were obtained through the brain without the use of intravenous contrast. Auto Exposure Controls were utilized during the CT exam to meet ALARA standards for radiation dose reduction. INDICATION: Right-sided facial drooping. Evaluate for stroke. COMPARISON: 06/25/2019. FINDINGS: No large acute territorial ischemia, mass, or hemorrhage. No midline shift or mass effect. Decreased attenuation is seen in the periventricular and subcortical white matter. The ventricles and cortical sulci are prominent. The basilar cisterns are patent and unremarkable. The calvarium is intact. The visualized paranasal sinuses are clear. IMPRESSION: 1. No large acute territorial ischemia, mass, or hemorrhage. If continued concern, consider brain MRI to further evaluate. 2. Chronic microvascular disease. 3. Generalized parenchymal volume loss. Dictated by: Dictated on workstation # [id number]
[2019-12-03 12:08] LABS: BASOPHILS # (AUTO) 0.1 10^3/uL (0.0-0.1); BASOPHILS % (AUTO) 1 % (0-10); EOSINOPHILS # (AUTO) 0.1 10^3/uL (0.0-0.3); EOSINOPHILS % (AUTO) 2 % (0-10); HEMATOCRIT 47 % (40-54); HEMOGLOBIN 15.8 G/DL (13.3-17.7); LYMPHOCYTES # (AUTO) 1.5 X 10^3 (1.0-4.0); LYMPHOCYTES % (AUTO) 18 % (12-44); MEAN CORPUSCULAR HEMOGLOBIN 31 PG (25-34); MEAN CORPUSCULAR HGB CONC 34 G/DL (32-36); MEAN CORPUSCULAR VOLUME 92 FL (80-99); MEAN PLATELET VOLUME 11.2 FL (7.4-10.4); MONOCYTES # (AUTO) 0.9 X 10^3 (0.0-1.0); MONOCYTES % (AUTO) 11 % (0-12); NEUTROPHILS # (AUTO) 5.7 X 10^3 (1.8-7.8); NEUTROPHILS % (AUTO) 69 % (42-75); PLATELET COUNT 106 10^3/uL (130-400); RED CELL DISTRIBUTION WIDTH 15.4 % (10.0-14.5); WHITE BLOOD COUNT 8.3 10^3/uL (4.3-11.0)
[2019-12-03 12:20] LABS: BUN/CREATININE RATIO 20; CARBON DIOXIDE 27 MMOL/L (21-32); CHLORIDE 103 MMOL/L (98-107); CREATININE SERUM 1.17 MG/DL (0.60-1.30); GFR ESTIMATED 59; SODIUM 139 MMOL/L (135-145)
[2019-12-03 12:21] LABS: ALANINE AMINOTRANSFERASE 15 U/L (0-55); ALBUMIN 4.3 GM/DL (3.2-4.5); ALKALINE PHOSPHATASE 72 U/L (40-136); BILIRUBIN,TOTAL 0.4 MG/DL (0.1-1.0); CALCIUM 9.7 MG/DL (8.5-10.1); GLUCOSE 179 MG/DL (70-105); MAGNESIUM 1.9 MG/DL (1.6-2.4)
[2019-12-03 12:29] LABS: FIBRIN DEGRADATION PRODUCTS 0.41 UG/ML (0.00-0.49); PROTHROMBIN TIME PATIENT 13.4 SEC (12.2-14.7)
--- NOTE | 2019-12-03 12:35 | Diagnostic Imaging Report ---
CHEST 1 VIEW, AP/PA ONLY Indication: Right-sided facial droop, stroke protocol. Comparison: 06/25/2019 Findings: No focal airspace disease in the visualized lungs. Please note that the posterior lower lobes are poorly evaluated by portable radiography. No pleural effusion or pneumothorax. Normal cardiomediastinal silhouette. Impression: 1. No acute cardiopulmonary process by portable radiography. Dictated by: Dictated on workstation # [id number]
[2019-12-03 12:42] LABS: TSH (THYROID ANALYZER) 0.86 UIU/ML (0.35-4.94)
[2019-12-03 13:11] LABS: BILIRUBIN,URINE NEGATIVE (NEGATIVE); CLARITY,URINE CLEAR; COLOR,URINE YELLOW; GLUCOSE, URINE (UA) NEGATIVE (NEGATIVE); KETONES,URINE NEGATIVE (NEGATIVE); LEUKOCYTE ESTERASE ,URINE NEGATIVE (NEGATIVE); NITRITE,URINE NEGATIVE (NEGATIVE); PROTEIN,URINE TRACE (NEGATIVE)
[2019-12-03 13:28] LABS: BACTERIA,URINE NEGATIVE /HPF; SQUAMOUS EPITHELIAL CELL,UR RARE /HPF; WBC,URINE RARE /HPF
[2019-12-03 14:28] LABS: AMPHETAMINE SCREEN, URINE NEGATIVE (NEGATIVE); BARBITURATE SCREEN URINE NEGATIVE (NEGATIVE); BENZODIAZEPINES SCREEN URINE NEGATIVE (NEGATIVE); CANNABINOID SCREEN, URINE NEGATIVE (NEGATIVE); COCAINE SCREEN URINE NEGATIVE (NEGATIVE); METHADONE STAT NEGATIVE (NEGATIVE); METHAMPHETAMINE SCREEN URINE S NEGATIVE (NEGATIVE); OPIATE SCREEN URINE NEGATIVE (NEGATIVE); OXYCODONE STAT NEGATIVE (NEGATIVE); PROPOXYPHENE STAT NEGATIVE (NEGATIVE); TRICYCLIC ANTIDEPRESSANTS SCRE NEGATIVE (NEGATIVE)
--- NOTE | 2019-12-03 16:06 | Diagnostic Imaging Report ---
PROCEDURE: MR imaging of the brain without contrast. TECHNIQUE: Multiplanar, multisequence MR imaging of the brain was performed without contrast. INDICATION: CVA. FINDINGS: There is prominence of the ventricles and sulci. There is moderately severe chronic microvascular ischemic disease. There is a small focal area of diffusion restriction in the left frontal lobe compatible with an acute CVA. This may be subacute as it is somewhat gyriform in appearance. There is no hydrocephalus. There is no midline shift. There is no mass, hemorrhage, or extra-axial fluid collection. The frontal, ethmoid, sphenoid, and maxillary sinuses are clear. Mastoid air cells are clear. Globes and intraorbital structures are unremarkable. 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 There is no evidence of hemorrhagic conversion. Atrophy and moderately severe chronic microvascular ischemic disease. Dictated by: Dictated on workstation # [id number]
[2019-12-03 16:30] VITALS: BP 162/51
[2019-12-03] MEDS ORDERED: CATHETER FLUSH 10 ML SYR IV PRN (16:30)
[2019-12-03] MEDS: D5 1/2 NS 1000 ML IV SOLUTION 1,000 ML IV SCH (16:53)
--- NOTE | 2019-12-03 17:45 | NUR ---
This RN spoke with Patricia RN from [facility], who informed this RN of information needed for admission. Patricia informed this RN that pt has been becoming increasingly confused over the last couple of weeks. Pt has had small bouts of confusion and forgetfulness but was easily reoriented by cue's. Over the last couple of weeks, pt has needed more than cues to perform ADL's. Pt normally walks well with a walker.
[2019-12-03 20:00] VITALS: BP 165/88
[2019-12-04] VITALS: BP 171/93
[2019-12-04 04:00] VITALS: BP 169/83
[2019-12-04] MEDS: D5 1/2 NS 1000 ML IV SOLUTION 1,000 ML IV SCH ×2 (04:22→11:57)
[2019-12-04 04:41] LABS: BASOPHILS % (AUTO) 0 % (0-10); EOSINOPHILS # (AUTO) 0.1 10^3/uL (0.0-0.3); EOSINOPHILS % (AUTO) 1 % (0-10); HEMATOCRIT 46 % (40-54); HEMOGLOBIN 15.7 G/DL (13.3-17.7); LYMPHOCYTES # (AUTO) 1.3 X 10^3 (1.0-4.0); LYMPHOCYTES % (AUTO) 12 % (12-44); MEAN CORPUSCULAR HEMOGLOBIN 31 PG (25-34); MEAN CORPUSCULAR HGB CONC 35 G/DL (32-36); MEAN CORPUSCULAR VOLUME 91 FL (80-99); MONOCYTES # (AUTO) 1.1 X 10^3 (0.0-1.0); MONOCYTES % (AUTO) 10 % (0-12); NEUTROPHILS # (AUTO) 7.9 X 10^3 (1.8-7.8); NEUTROPHILS % (AUTO) 76 % (42-75); PLATELET COUNT 97 10^3/uL (130-400); RED CELL DISTRIBUTION WIDTH 14.9 % (10.0-14.5); WHITE BLOOD COUNT 10.4 10^3/uL (4.3-11.0)
[2019-12-04 05:05] LABS: ALANINE AMINOTRANSFERASE 32 U/L (0-55); ALBUMIN 4.1 GM/DL (3.2-4.5); ALKALINE PHOSPHATASE 66 U/L (40-136); BILIRUBIN,TOTAL 0.7 MG/DL (0.1-1.0); BUN/CREATININE RATIO 19; CALCIUM 9.3 MG/DL (8.5-10.1); CARBON DIOXIDE 24 MMOL/L (21-32); CHLORIDE 101 MMOL/L (98-107); CHOLESTEROL 149 MG/DL (< 200); CREATININE SERUM 0.88 MG/DL (0.60-1.30); GFR ESTIMATED > 60; GLUCOSE 188 MG/DL (70-105); HDL CHOLESTEROL 41 MG/DL (40-60); POTASSIUM 4.2 MMOL/L (3.6-5.0); SODIUM 135 MMOL/L (135-145); TOTAL PROTEIN 6.8 GM/DL (6.4-8.2); TRIGLYCERIDES 150 MG/DL (<150); VLDL CHOLESTEROL 30 MG/DL (5-40)
--- NOTE | 2019-12-04 07:51 | History & Physical-Hospitalist ---
History of Present Illness HPI/Chief Complaint patient is an 89-year-old male who was admitted due to altered mental status. He was admitted in assisted living facility at [facility] and reportedly was his normal self yesterday morning and went to his room after breakfast but wasn't found at 9 a.m. by physical therapy and was altered. They said he was staring at them and did not respond but was alert. He was brought to the ER stroke activation. CT head was done which was negative. His mentation improved he was able to answer some questions but was very slow. Chest x-ray and UA did not reveal any sources of infection. He was admitted for a stroke rule out an MRI was done. 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 I discussed these results with his family report that the symptoms have been going on for at least a couple of weeks but just worsened yesterday. They had actually been looking at a memory care unit out near their home outside of [place] due to his decline. Source: patient Date Seen 12/04/19 Time Seen by a Provider: 09:46 Attending Physician Radha Blankenship MD PCP Dimas Aguilar MD Referring Physician Date of Admission Dec 03, 2019 at 16:35 Home Medications & Allergies Home Medications Reviewed patient Home Medication Reconciliation performed by pharmacy medication reconciliations heavy truck technician and/or nursing. Patients Allergies have been reviewed. Allergies Allergies Coded Allergies No Known Drug Allergies (Fedkkeybpr87/16/13) Past Uamezmn-Auylen-Dsymle Hx Past Med/Social Hx: Reviewed Nursing Past Med/Soc Hx Patient Social History Alcohol Use: Denies Use Recreational Drug Use: No Smoking Status: Never a Smoker 2nd Hand Smoke Exposure: No Recent Foreign Travel: No Contact w/other who traveled: No Recent Hopitalizations: No Recent Infectious Disease Expo: No Immunizations Up To Date Date of Pneumonia Vaccine: Jul 05, 2011 Date of Influenza Vaccine: Aug 01, 2019 Seasonal Allergies Seasonal Allergies: No Past Medical History Surgeries: Eye Surgery, Joint Replacement, Orthopedic Musculoskeletal: Arthritis, Back Injury HEENT: Cataract, Glaucoma History of Blood Disorders: No Adverse Reaction to Blood Deutsch: No Family History Reviewed Nursing Family Hx No Pertinent Family Hx Review of Systems ROS-Unable to Obtain: limited by altered mental status Constitutional: see HPI Physical Exam Physical Exam Vital Signs Vital Signs - First Documented 12/03/19 11:08 Temp 36.1 Pulse 73 Resp 17 B/P (MAP) 133/94 (107) Pulse Ox 97 O2 Delivery Room Air Capillary Refill : Less Than 3 Seconds Height, Weight, BMI Height: 5'8.00" Weight: 173lbs. oz. 78.177375zh; 29.33 BMI Method:Stated General Appearance: No Apparent Distress, Chronically ill HEENT: Moist Mucous Membranes; No Scleral Icterus (L), No Scleral Icterus (R) Respiratory: Lungs Clear, No Respiratory Distress Cardiovascular: Regular Rate, Rhythm, No Murmur Gastrointestinal: Normal Bowel Sounds, Non Tender, Soft Extremity: No Calf Tenderness, No Pedal Edema Neurologic/Psychiatric: Alert; No Facial Droop Skin: Normal Color, Warm/Dry Results Results/Procedures Labs Laboratory Tests 12/04/19 04:27 12/05/19 03:28 Patient resulted labs reviewed. Imaging: Reviewed Imaging Report Assessment/Plan Admission Diagnosis Subacute CVA Admission Status: Inpatient Order (span 2 midnights) Reason for Inpatient Admission: stroke Assessment and Plan Subacute CVA Negative CT Head MRI shows subacte infarct PT/OT consulted ASA Statin security services specialist consult for placement Echo ordered Thrombocytopenia Appears chronic Has history of alcohol abuse so likely 2/2 to that Hypoxia- new Echo ordered Chest XR negative Titrate oxygen as able Hyperglycemia Fasting blood sugar 188 this AM Will add SSI Diagnosis/Problems Diagnosis/Problems (1) Hyperglycemia Status: Chronic (2) Parkinson disease Status: Chronic (3) CVA (cerebral vascular accident) Status: Acute Qualifiers: CVA mechanism: unspecified Qualified Codes: I63.9 - Cerebral infarction, unspecified Clinical Quality Measures DVT/VTE Risk/Contraindication: Risk Factor Score Per Nursin RFS Level Per Nursing on Admit: 2=Moderate RADHA BLANKENSHIP MD Dec 04, 2019 07:51
[2019-12-04 08:00] VITALS: BP 139/73
[2019-12-04] MEDS ORDERED: ANTACID SUSP 30 ML UDC (MYLANTA) PO PRN (10:00)
[2019-12-04] MEDS ORDERED: ONDANSETRON 4 MG/2 ML (SDV) Z0FRAN IV PRN (10:00)
[2019-12-04] MEDS ORDERED: MILK OF MAGNESIA 400 MG/5 ML 30 ML UDC PO PRN (10:00)
[2019-12-04] MEDS ORDERED: ACETAMINOPHEN 325 MG TABLET PO PRN (10:00)
[2019-12-04] MEDS ORDERED: ASPIRIN E.C. 81 MG (ECOTRIN) TAB PO NR (10:00)
[2019-12-04] MEDS ORDERED: BENZONATATE 100 MG (TESSALON) CAPSULE PO PRN (10:00)
[2019-12-04] MEDS ORDERED: MELATONIN 3 MG TABLET PO PRN (10:00)
[2019-12-04] MEDS ORDERED: BENZ-13 PO (11:12)
[2019-12-04] MEDS ORDERED: DONE10TA41 PO (11:12)
[2019-12-04] MEDS ORDERED: L. A1CAP9 PO (11:12)
[2019-12-04] MEDS ORDERED: ESCI20TA PO (11:12)
[2019-12-04] MEDS ORDERED: MIRA25TA PO (11:12)
[2019-12-04] MEDS ORDERED: ALPR0.25 PO (11:12)
[2019-12-04] MEDS ORDERED: CARB1TAB6 PO ×2 (11:12)
[2019-12-04] MEDS ORDERED: IPRA3AMP31 NEB (11:12)
[2019-12-04] MEDS ORDERED: AMOX500T2 PO (11:12)
[2019-12-04] MEDS ORDERED: CHOL4PAC16 PO (11:12)
[2019-12-04] MEDS ORDERED: ACET325T38 PO (11:12)
[2019-12-04] MEDS ORDERED: LATA2.5D5 OU (11:12)
[2019-12-04] MEDS ORDERED: MULT1TAB69 PO (11:12)
[2019-12-04] MEDS ORDERED: MEMA10TA2 PO (11:12)
--- NOTE | 2019-12-04 11:16 | NUR ---
UPDATED MED REC WITH PHYSICIAN'S ORDERS FROM [facility]. I CALLED THEM TO VERIFY THEY DO ADMINISTER THE MEDICATION TO THE PATIENT.
[2019-12-04 11:50] VITALS: BP 164/77
[2019-12-04] MEDS: inSUlin ASPART (NovoLOG) 1 UNIT/0.01 ML (CHARGE PER UNIT) SC SCH ×3 (11:55→21:17)
[2019-12-04] MEDS ORDERED: ALPRAZolam 0.25 MG (XANAX) TAB PO PRN (12:30)
[2019-12-04] MEDS ORDERED: SINEMET 25/100 (CARBIDOPA/LEVODOPA) TAB PO PRN (12:30)
[2019-12-04] MEDS ORDERED: LATANOPROST 0.005% (XALATAN) OPHTH SOLN 2.5 ML OU SCH (12:37)
[2019-12-04] MEDS: SINEMET 25/100 (CARBIDOPA/LEVODOPA) TAB PO SCH ×2 (13:53→20:11)
--- NOTE | 2019-12-04 13:57 | Occupational Therapy Eval ---
OT Evaluation-General/PLF Medical Diagnosis Admission Date Dec 03, 2019 at 16:35 Medical Diagnosis: AMS Onset Date: Dec 03, 2019 Therapy Diagnosis Therapy Diagnosis: impaired ADLs/functional mobility Height/Weight Height (Feet): 5 Height (Inches): 8.00 Weight (Pounds): 173 Precautions Precautions/Isolations: Fall Prevention, Standard Precautions Safety Interventions: Bed Exit Alarm Referral Physician: Dana Referral Reason: Evaluation/Treatment Medical History Pertinent Medical History: Arthritis Additional Medical History back injury, cataract, glaucoma, eye surgery, jt replacement Current History Per H&P: "patient is an 89-year-old male who was admitted due to altered mental status. He was admitted in assisted living facility at [facility] and reportedly was his normal self yesterday morning and went to his room after breakfast but wasn't found at 9 a.m. by physical therapy and was altered. They said he was staring at them and did not respond but was alert. He was brought to the ER stroke activation. CT head was done which was negative. His mentation improved he was able to answer some questions but was very slow. Chest x-ray and UA did not reveal any sources of infection. He was admitted for a stroke rule out an MRI was done. 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 I discussed these results with his family report that the symptoms have been going on for at least a couple of weeks but just worsened yesterday. They had actually been looking at a memory care unit out near their home outside of [place] due to his decline." Reviewed History: Yes Social History Home: Assisted Living ADL-Prior Level of Function SCALE: Activities may be completed with or without assistive devices. 5-Smowjixvay-ekkuine completes the activity by him/herself with no assistance from a helper. 5-Set-up or Clean-up Assistance-helper sets up or cleans up; patient completes activity. Everett assists only prior to or following the activity. 4-Supervision or Touching Assistance-helper provides verbal cues and/or touching/steadying and/or contact guard assistance as patient completes activity. Assistance may be provided throughout the activity or intermittently. 3-Partial/Moderate Assistance-helper does LESS THAN HALF the effort. Everett lifts, holds or supports trunk or limbs, but provides less than half the effort. 2-Substantial/Maximal Assistance-helper does MORE THAN HALF the effort. Everett lifts or holds trunk or limbs and provides more than half the effort. 7-Zoaegcjnv-ibssdm does ALL the effort. Patient does none of the effort to complete the activity. Or, the assistance of 2 or more helpers is required for the patient to complete the activity. If activity was not attempted, code reason: 7-Patient Refused. 9-Not Applicable-not attempted and the patient did not perform the activity before the current illness, exacerbation or injury. 10-Not Attempted due to Environmental Limitations-(lack of equipment, weather restraints, etc.). 88-Not Attempted due to Medical Conditions or Safety Concerns. ADL PLOF Comments Pt has been at [facility] for ~1 year where he gets PT/OT services. Pt unable to provide information about PLOF, his son was present and reports that he gets supervision with bathing, and he is usually able to dress himself but he gets assistance with dressing as needed. He is unable to button clothes or use zippers, requiring assistance with closures/fasteners. He uses a walker for functional mobility. Self Care: Needed Some Help Functional Cognition: Needed Some Help OT Current Status Subjective Pt laying in bed with son and daughter in law present. Pt did not report any pain during tx. Mental Status/Objective Patient Orientation: Confused Attachments: Telemetry Current Glasses/Contacts: Yes Hearing Aids: No Dentures/Partials: No Hand Dominance: Right Upper Extremity ROM WFL, BUE shoulder flexion to approx 130 degrees Upper Extremity Coordination WFL Upper Extremity Sensation he denies tingling/numbness BUEs Upper Extremity Strength grossly 3/5 MMT Other Treatments Pt laying in bed, attempted to provide information for evaluation including PLOF and home set up. When asked where he lived prior to coming to the hospital, he listed an address on [facility]. Pt's son reports the pt had lived there at one time but he has been at [facility] for the last year. When asked what his name was, pt said "uhhh, uhhh, uhhh", he was unable to provide a name. When OT asked pt if his name was Mitchel, he reports yes. Pt also said yes when asked if he wears dentures, but family states he does not. Pt participated in ROM screen. Pt and family educated on the purpose and benefits of OT, family verbalized understanding. Pt reports being tired at end of session. Post OT tx, pt laying in bed with call light in reach and all needs met, son and daughter in law present. Education OT Patient Education: Correct positioning, Energy conservation, Modified ADL techniques, Progress toward Goal/Update tx plan, Purpose of tx/functional activities, Safety issues Teaching Recipient: Patient Teaching Methods: Discussion Response to Teaching: Verbalize Understanding OT Fpc Goals Corking Machine Operator Goals Time Frame: Dec 14, 2019 Eating (QC): 6 Oral Hygiene (QC): 6 Toileting Hygiene (QC): 4 Shower/Bathe Self (QC): 4 Upper Body Dressing (QC): 4 Lower Body Dressing (QC): 4 On/Off Footwear (QC): 4 Additional Goals: 1-Demonstrate ADL Tasks, 2-Verbalize Understanding, 3- ImproveStrength/Abiel 1=Demonstrate adherence to instructed precautions during ADL tasks. 2=Patient will verbalize/demonstrate understanding of assistive devices/modifications for ADL. 3=Patient will improve strength/tolerance for activity to enable patient to perform ADL's. OT Education/Plan Problem List/Assessment Assessment: Decreased Activ Tolerance, Decreased Safety Aware, Decreased UE Strength, Impaired Cognition, Impaired Funct Balance, Impaired I ADL's, Impaired Self-Care Skills Discharge Recommendations Plan/Recommendations: Continue POC Treatment Plan/Plan of Care Treatment,Training & Education: Yes Patient would benefit from OT for education, treatment and training to promote independence in ADL's, mobility, safety and/or upper extremity function for ADL's. Plan of Care: ADL Retraining, Functional Mobility, UE Funct Exercise/Act Treatment Duration: Dec 14, 2019 Frequency: 5 times per week Estimated Hrs Per Day: .25 hour per day Agreement: Yes Rehab Potential: Fair Time/GCodes Start Time: 13:35 Stop Time: 13:44 Total Time Billed (hr/min): 9 Billed Treatment Time 1, ADELA CHAO OT Dec 04, 2019 13:57
--- NOTE | 2019-12-04 14:14 | Physical Therapy Evaluation ---
PT Evaluation-General Medical Diagnosis Admission Date Dec 03, 2019 at 16:35 Medical Diagnosis: AMS Onset Date: Dec 03, 2019 Therapy Diagnosis Therapy Diagnosis: generalized weakness/debility Height/Weight Height (Feet): 5 Height (Inches): 8.00 Weight (Pounds): 173 Precautions Precautions/Isolations: Fall Prevention, Standard Precautions Weight Bear Status Right Lower Extremity: Right Weight Bearing/Tolerated Left Lower Extremity: Left Weight Bearing/Tolerated Referral Physician: Dana Reason for Referral: Evaluation/Treatment Medical History Pertinent Medical History: Arthritis, Dementia, Parkinson's Additional Medical History per family, patient had a CVA ~ 3 wks ago Current History EMS secondary to AMS Reviewed History: Yes Social History Home: Assisted Living Prior Prior Level of Function SCALE: Activities may be completed with or without assistive devices. 8-Mkabipfvch-bdwdfaa completes the activity by him/herself with no assistance from a helper. 5-Set-up or Clean-up Assistance-helper sets up or cleans up; patient completes activity. Spencer assists only prior to or following the activity. 4-Supervision or Touching Assistance-helper provides verbal cues and/or touching/steadying and/or contact guard assistance as patient completes activit y. Assistance may be provided throughout the activity or intermittently. 3-Partial/Moderate Assistance-helper does LESS THAN HALF the effort. Spencer lifts, holds or supports trunk or limbs, but provides less than half the effort. 2-Substantial/Maximal Assistance-helper does MORE THAN HALF the effort. Spencer lifts or holds trunk or limbs and provides more than half the effort. 6-Jsxdhqlmq-ukvuvx does ALL the effort. Patient does none of the effort to complete the activity. Or, the assistance of 2 or more helpers is required for the patient to complete the activity. If activity was not attempted, code reason: 7-Patient Refused. 9-Not Applicable-not attempted and the patient did not perform the activity before the current illness, exacerbation or injury. 10-Not Attempted due to Environmental Limitations-(lack of equipment, weather restraints, etc.). 88-Not Attempted due to Medical Conditions or Safety Concerns. Bed Mobility: 5 Transfers (B,C,W/C): 5 Gait: 5 Indoor Mobility (Ambulation): Needed Some Help Stairs: Not Applicalbe Prior Devices Use: Walker PT Evaluation-Current Subjective Patient and family agree to PT. Objective Patient Orientation: Confused Attachments: Oxygen, Sweet Catheter, IV ROM/Strength ROM Lower Extremities bilateral LE WFL Strength Lower Extremities 3/5 grossly bilateral LE Integumentary/Posture Integumentary refer to nursing notes Bladder Incontinence: Sweet Cath Posture kyphotic, trunk flexed posture Neuromuscular (Tone, Coordination, Reflexes) diminished coordination/noted bilateral UE tremors Sensory Vision: Functional Hearing: Impaired Hand Dominance: Right Sensation Right Lower Extremit: Intact Sensation Left Lower Extremity: Intact Transfers Roll Left to Right (QC): 2 Sit to Lying (QC): 2 Lying to Sitting/Side of Bed(Q: 2 Sit to Stand (QC): 2 Chair/Rfu-yq-Aqohp Xfer(QC): 2 Gait Does the Patient Walk?: Yes Mode of Locomotion: Walk Anticipated Mode of Locomotion: Both Walk 10 feet (QC): 2 Walk 50 ft with 2 Turns(QC): 2 Walk 150 ft (QC): 88 Distance: 75' Gait Assistive Device: FWW Comments/Gait Description PT assist to advance FWW and for turns Wheelchair Training Does the Pt Use a Wheelchair?: No Balance Sitting Static: Fair Sitting Dynamic: Fair Standing Static: Fair Standing Dynamic: Fair Assessment/Needs 89 y.o. male, will benefit from skilled PT to address functional strength and mobility to improve current LOF. From a PT standpoint, patient would benefit from extended care facility to ensure safety. Rehab Potential: Guarded PT Fpc Goals Fpc Goals PT Regional Economist Goals Time Frame: Dec 15, 2019 Roll Left & Right (QC): 5 Sit to Lying (QC): 5 Lying-Sitting on Side/Bed(QC): 5 Sit to Stand (QC): 5 Chair/Wbw-hd-Mjsfu Xfer(QC): 5 Does the Patient Walk: Yes Walk 10 feet (QC): 4 Walk 50ft with 2 Turns (QC): 4 PT Plan Problem List Problem List: Activity Tolerance, Functional Strength, Safety, Balance, Gait, Transfer, Bed Mobility Treatment/Plan Treatment Plan: Continue Plan of Care Treatment Plan: Bed Mobility, Education, Functional Activity Abiel, Functional Strength, Gait, Safety, Therapeutic Exercise, Transfers Treatment Duration: Dec 15, 2019 Frequency: 6 times per week Estimated Hrs Per Day: .25 hour per day Patient and/or Family Agrees t: Yes Discharge Recommendations Therapy Discharge Recommendati: Other, See Comments (longterm facility) Time/GCodes Time In: 1300 Time Out: 1325 Total Billed Treatment Time: 25 Total Billed Treatment 1 visit EVModC 14 min GT 11 min JUSTIN PENNY PT Dec 04, 2019 14:14
--- NOTE | 2019-12-04 15:16 | ST Dysphagia Evaluation ---
Speech Evaluation-General Medical Diagnosis AMS Onset Date: Dec 03, 2019 Therapy Diagnosis Therapy Diagnosis: Oropharyngeal Dysphagia Referral Referring Physician: Dr. Cortez Medical History Pertinent Medical History: Arthritis, Dementia, Parkinson's Reviewed History: Yes Speech PLF/Current-Dysphagia Prior Level of Function Patient lived in an [facility] where he received assistance with his daily needs as needed. Subjective The patient was cooperative with the Bedside Dysphagia Evaluation. Son was present during the evaluation. Cognitive Status Patient Orientation: Confused, Unable to Assess Son states he didn't even recognize him this date. Oral Motor Skills Dentition: Natural Current Food Consistancy: Mechanical Soft Ability to Follow Directions: Fair Oral Expression Ability: Moderate Impairment Voice Voice Phonatory-Based Quality: Weak Voice Pitch: Normal Voice Loudness: Mildly Soft/Quiet Face Facial Symmetry: Symmetrical Oral-Facial Assessment Oral-Facial Dentition: Normal Labial Seal Description: Weak Lingual Protrusion: Normal Lingual ROM: Normal Lingual Strength: Normal Pharynx Velopharyngeal Move.: Normal Volitional Dry Swallow: Yes Dysphagia Evaluation Consistencies Presented: Regular, Thin Liquid, Mechanical Soft, Pureed Oral phase is within normal limits for all consistencies Pharyngeal phase is within normal limits for all consistencies Dietary Recommendations: Regular Swallowing Precautions: Alternate Liquids/Solids, Double Swallow, Decreased Bolus 1/2 Tsp, Decreased Rate of Oral Intake, Liquids from Straw, Small Bites and Sips, Sitting Upright 90 Degrees, Sitting 90 Degrees 30 Post Intake Dysphagia Evaluation Summary Patient was admitted to the hospital due to AMS. Patient was referred for a BDE to determine least restrictive diet level. Patient was on Dysphagia II with thin liquids prior to evaluation. The patient was given thin liquids via 1/2 tsp x2 and small sips via straw x2 without difficulty or s/s of aspiration. The patient was also presented 1/2 tsp bite size of puree, mechanical soft and regular without difficulty or s/s of aspiration. Patient is recommended for regular diet level with thin liquids. The patient will require assistance with all oral intake. Son was educated on compensatory strategies to utilize during feeding the patient. Patient's nurse has been advised of diet recs. Diet level has also been written on his white board. Speech Short Term Goals Short Term Goals Short Term Goals 1) The patient will tolerate the least restrictive diet level without s/s of aspiration at 90% or greater. 2) Patient/caregiver will utilize compensatory strategies as trained for safe oral intake at 90% with minimal cues. Speech Regulatory Affairs Manager Goals Regulatory Affairs Manager Goals Patient will maintain adequate nutrition/hydration via safe, effective swallow function. Speech-Plan Patient/Family Goals Patient/Family Goals: Patient's family are investigating placement closer to their [place] home. Treatment Plan Speech Therapy Treatment Plan: Discontinue ST Treatment Duration: Dec 04, 2019 Frequency: 1 time per week Estimated Hrs Per Day: .25 hour per day Rehab Potential: Guarded Barriers to Learning: Patient has Alzheimer's Pt/Family Agrees to Plan: Yes Safety Risks/Education Teaching Recipient: Patient, Family Teaching Methods: Demonstration, Discussion Response to Teaching: Verbalize Understanding, Return Demonstration, Reinforcement Needed Education Topics Provided: Safety strategies for oral intake, diet level Time Speech Therapy Time In: 14:50 Speech Therapy Time Out: 15:05 Total Billed Time: 15 Billed Treatment Time 1RANDY [address] ST Dec 04, 2019 15:16
[2019-12-04 15:45] VITALS: BP 164/81
--- NOTE | 2019-12-04 16:10 | NUR ---
This nurse called to report to her that patients son and daughter in law called me in the room stating that patient was having "some kind of episode" patients son described it as him starring to the right and then mumbling, he stated that it lasted about 15-20seconds. No new orders received att. will continue to closely monitor patient.
[2019-12-04] MEDS: LEVETIRACETAM INJECTION 500 MG in NS (IVPB) 100 ML IV SCH (18:05)
[2019-12-04] MEDS: LACTOBACILLUS ACIDOPHILUS (PROBIOTIC) CAPSULE PO SCH (18:22)
[2019-12-04 19:59] VITALS: BP 150/89
[2019-12-04] MEDS: MEMANTINE 10 MG (NAMENDA) TABLET PO SCH (20:12)
[2019-12-04] MEDS: CHOLESTYRAMINE 4 GM (QUESTRAN LITE, PREVALITE) PKT PO SCH (20:12)
[2019-12-04] MEDS: LATANOPROST 0.005% (XALATAN) OPHTH SOLN 2.5 ML OU SCH (20:12)
[2019-12-05] VITALS: BP 148/73
[2019-12-05 04:00] VITALS: BP 152/76
[2019-12-05 04:02] LABS: HEMOGLOBIN 15.2 G/DL (13.3-17.7); MEAN PLATELET VOLUME 10.6 FL (7.4-10.4); RED CELL DISTRIBUTION WIDTH 15.1 % (10.0-14.5); WHITE BLOOD COUNT 6.6 10^3/uL (4.3-11.0)
[2019-12-05 04:25] LABS: BUN/CREATININE RATIO 14; CALCIUM 9.3 MG/DL (8.5-10.1); CARBON DIOXIDE 24 MMOL/L (21-32); CHLORIDE 105 MMOL/L (98-107); CREATININE SERUM 0.79 MG/DL (0.60-1.30); GFR ESTIMATED > 60; GLUCOSE 141 MG/DL (70-105); SODIUM 139 MMOL/L (135-145)
[2019-12-05] MEDS: inSUlin ASPART (NovoLOG) 1 UNIT/0.01 ML (CHARGE PER UNIT) SC SCH ×4 (06:19→21:09)
[2019-12-05] MEDS: LACTOBACILLUS ACIDOPHILUS (PROBIOTIC) CAPSULE PO SCH ×3 (07:24→16:46)
[2019-12-05 08:30] VITALS: BP 147/85
[2019-12-05] MEDS: MEMANTINE 10 MG (NAMENDA) TABLET PO SCH ×2 (08:58→21:37)
[2019-12-05] MEDS: LEVETIRACETAM INJECTION 500 MG in NS (IVPB) 100 ML IV SCH ×2 (08:58→21:37)
[2019-12-05] MEDS: ASPIRIN E.C. 81 MG (ECOTRIN) TAB PO SCH (08:58)
[2019-12-05] MEDS: DONEPEZIL 10 MG (ARICEPT) TAB PO SCH (08:58)
[2019-12-05] MEDS: SINEMET 25/100 (CARBIDOPA/LEVODOPA) TAB PO SCH ×3 (08:58→21:37)
[2019-12-05] MEDS ORDERED: NON-FORMULARY MEDICATION 1 EA EA (Mirabegron (Myrbetriq) 25 MG) PO SCH (09:00)
[2019-12-05] MEDS: CHOLESTYRAMINE 4 GM (QUESTRAN LITE, PREVALITE) PKT PO SCH (09:02)
[2019-12-05] MEDS: LATANOPROST 0.005% (XALATAN) OPHTH SOLN 2.5 ML OU SCH (09:02)
--- NOTE | 2019-12-05 10:09 | NUR ---
PALLIATIVE CARE RN in to see patient. Brother and sister in law are present during visit. We discussed their voiced desire to seek hospice on discharge back to [facility]. We discussed their options and they chose [facility] based on their investigation on line and the reviews. Also they utilized hospice for a family member previously. I have spoken to Yady at [facility] to alert her that he will require a bed on the residential side. I also informed her of the families decision for Hospice. Discharge is expected tomorrow.
--- NOTE | 2019-12-05 10:54 | Physical Therapy Daily Note ---
PT Daily Note-Current Subjective Patient in bed pre tx, agrees to PT, has no complaints of pain. Patient very drowsy. Appearance Patient in bed post tx with nurse call, phone tray, all needs met. Nurse help scoot patient up in bed using draw sheet. Mental Status Patient Orientation: Person, Confused Transfers SCALE: Activities may be completed with or without assistive devices. 4-Qxdfxpzyyr-jjyoqho completes the activity by him/herself with no assistance from a helper. 5-Set-up or Clean-up Assistance-helper sets up or cleans up; patient completes activity. [place] assists only prior to or following the activity. 4-Supervision or Touching Assistance-helper provides verbal cues and/or touching/steadying and/or contact guard assistance as patient completes a ctivity. Assistance may be provided throughout the activity or intermittently. 3-Partial/Moderate Assistance-helper does LESS THAN HALF the effort. [place] lifts, holds or supports trunk or limbs, but provides less than half the effort. 2-Substantial/Maximal Assistance-helper does MORE THAN HALF the effort. [place] lifts or holds trunk or limbs and provides more than half the effort. 9-Nrmblcssc-ixlcsk does ALL the effort. Patient does none of the effort to complete the activity. Or, the assistance of 2 or more helpers is required for the patient to complete the activity. If activity was not attempted, code reason: 7-Patient Refused. 9-Not Applicable-not attempted and the patient did not perform the activity before the current illness, exacerbation or injury. 10-Not Attempted due to Environmental Limitations-(lack of equipment, weather restraints, etc.). 88-Not Attempted due to Medical Conditions or Safety Concerns. Roll Left & Right (QC): 4 Sit to Lying (QC): 3 (modA) Lying to Sitting/Side of Bed(Q: 3 (modA) Sit to Stand (QC): 3 Chair/Kyo-uf-Namcd Xfer(QC): 3 Weight Bearing Right Lower Extremity: Right Weight Bearing/Tolerated Left Lower Extremity: Left Weight Bearing/Tolerated Gait Training Distance: 60' Walk 10 feet (QC): 3 Walk 50 ft with 2 Turns(QC): 3 Gait Persons Needed: 1 Gait Assistive Device: FWW Min /modA, needs assist guiding walker, tends to keep walker too far in front, slow ambulation, shuffles Exercises Seated Therapy Exercises: Ankle pumps, Long arc quads Seated Reps: 15 Treatments LE exercise, ambulation, bed mobility and transfers, patient used urinal sitting on the side of the bed with assist Assessment Current Status: Poor Progress Patient unsafe with ambulation and transfers, needs assist for both. PT Snf Goals Snf Goals PT Spout Liner Helper Goals Time Frame: Dec 15, 2019 Roll Left & Right (QC): 5 Sit to Lying (QC): 5 Lying-Sitting on Side/Bed(QC): 5 Sit to Stand (QC): 5 Chair/Ctk-yq-Miopn Xfer(QC): 5 Does the Patient Walk: Yes Walk 10 feet (QC): 4 Walk 50ft with 2 Turns (QC): 4 PT Plan Problem List Problem List: Activity Tolerance, Functional Strength, Safety, Balance, Gait, Transfer, Bed Mobility Treatment/Plan Treatment Plan: Continue Plan of Care Treatment Plan: Bed Mobility, Education, Functional Activity Abiel, Functional Strength, Gait, Safety, Therapeutic Exercise, Transfers Treatment Duration: Dec 15, 2019 Frequency: 6 times per week Estimated Hrs Per Day: .25 hour per day Patient and/or Family Agrees t: Yes Safety Risks/Education Patient Education: Gait Training, Transfer Techniques, Correct Positioning, Safety Issues Teaching Recipient: Patient Teaching Methods: Demonstration, Discussion Response to Teaching: Reinforcement Needed Time/GCodes Time In: 1020 Time Out: 1040 Total Billed Treatment Time: 20 Total Billed Treatment 1 visit FA BEN BUCK PT Dec 05, 2019 10:54
[2019-12-05 13:00] VITALS: BP 152/97
--- NOTE | 2019-12-05 13:40 | Progress Note - Hospitalist ---
Subjective HPI/CC On Admission Date Seen by Provider: Dec 05, 2019 Time Seen by Provider: 13:36 patient is an 89-year-old male who was admitted due to altered mental status. He was admitted in assisted living facility at [facility] and reportedly was his normal self yesterday morning and went to his room after b reakfast but wasn't found at 9 a.m. by physical therapy and was altered. They said he was staring at them and did not respond but was alert. He was brought to the ER stroke activation. CT head was done which was negative. His mentation improved he was able to answer some questions but was very slow. Chest x-ray and UA did not reveal any sources of infection. He was admitted for a stroke rule out an MRI was done. 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 I discussed these results with his family report that the symptoms have been going on for at least a couple of weeks but just worsened yesterday. They had actually been looking at a memory care unit out near their home outside of [place] due to his decline. Subjective/Events-last exam Pt is drowsy in bed. No complaints. Family at bedside and interested in transitioning to hospice. Focused Exam Lactate Level 12/03/19 12:20: Lactic Acid Level 2.34*H 12/03/19 16:45: Lactic Acid Level 1.39 Objective Exam Vital Signs Vital Signs Date Time Temp Pulse Resp B/P (MAP) Pulse Ox O2 Delivery O2 Flow Rate FiO2 12/05/19 13:00 35.3 68 16 152/97 (115) 97 Room Air 12/04/19 21:00 2.00 Capillary Refill : Less Than 3 Seconds General Appearance: No Apparent Distress, Chronically ill Respiratory: Lungs Clear, No Respiratory Distress Cardiovascular: Regular Rate, Rhythm, No Murmur Neurologic/Psychiatric: Other (drowsy but arouses to voice) Results/Procedures Lab Laboratory Tests 12/05/19 03:28 Patient resulted labs reviewed. Imaging: Reviewed Imaging Report Assessment/Plan Assessment and Plan Assess & Plan/Chief Complaint Subacute CVA Negative CT Head MRI shows subacute infarct PT/OT ASA Statin nutritional services host consult for placement Echo with preserved EF Hospice consulted Thrombocytopenia Appears chronic Has history of alcohol abuse so likely 2/2 to that Hypoxia- resolved Hyperglycemia SSI Clinical Quality Measures DVT/VTE Risk/Contraindication: Risk Factor Score Per Nursin RFS Level Per Nursing on Admit: 2=Moderate CHAVEZ BLANKENSHIP MD Dec 05, 2019 13:40
--- NOTE | 2019-12-05 14:47 | Occupational Ther Daily Note ---
OT Current Status-Daily Note Subjective Pt seen in bed sleeping. Pt's nurse states pt has been sleeping on/off throughout the day. Pt's family present, pt wakes upon OT entrance, agreeable for OT tx session. Pt denies pain. Mental Status/Objective Attachments: Telemetry ADL-Treatment Therapy Code Descriptions/Definitions Functional [place] Measure: 0=Not Assessed/NA 4=Minimal Assistance 1=Total Assistance 5=Supervision or Setup 2=Maximal Assistance 6=Modified [place] 3=Moderate Assistance 7=Complete IndependenceSCALE: Activities may be completed with or without assistive devices. 4-Keyduwryaf-mrfehoz completes the activity by him/herself with no assistance from a helper. 5-Set-up or Clean-up Assistance-helper sets up or cleans up; patient completes activity. [place] assists only prior to or following the activity. 4-Supervision or Touching Assistance-helper provides verbal cues and/or touching/steadying and/or contact guard assistance as patient completes activity. Assistance may be provided throughout the activity or intermittently. 3-Partial/Moderate Assistance-helper does LESS THAN HALF the effort. [place] lifts, holds or supports trunk or limbs, but provides less than half the effort. 2-Substantial/Maximal Assistance-helper does MORE THAN HALF the effort. [place] lifts or holds trunk or limbs and provides more than half the effort. 8-Ejsolzlgq-mytokb does ALL the effort. Patient does none of the effort to complete the activity. Or, the assistance of 2 or more helpers is required for the patient to complete the activity. If activity was not attempted, code reason: 7-Patient Refused. 9-Not Applicable-not attempted and the patient did not perform the activity before the current illness, exacerbation or injury. 10-Not Attempted due to Environmental Limitations-(lack of equipment, weather restraints, etc.). 88-Not Attempted due to Medical Conditions or Safety Concerns. Eating (QC): 5 (s/u for straw and ensure. pt denies food/ drink) Lower Body Dressing (QC): 3 (Min A, pt able to thread L LE in breif, requires assist for one LE, CGA in stance to pull undergarments up ) On/Off Footwear: 1 (TD in bed.) Toileting Hygiene (QC): 2 (max A for thoroughness. Pt not able to reach in sit, requires max cues for stance to complete. Pt not able to maintain balance/ complete ROM to complete. post-BM) Toilet Transfer (QC): 4 (CGA to toilet, use of walker and grab bars.) Other Treatment Pt wakes with verbal cues. Pt completes bed mob with mod A to complete supine to sit due to weakness. Pt moves self to EOB, completes sit to stand with CGA and walker. Pt ambulates to toilet, completes BM and QC's taken as above. Pt returns to bed, bed mob with IND (able to scoot self up in bed with bed supine), pt left with family in bed, all needs met, pt allows OT to place all bed rails up with agreement, and pt's family member s/u for Ensure feeding. Education OT Patient Education: Modified ADL techniques, Purpose of tx/functional acti vities, Safety issues, Transfer techniques Teaching Recipient: Patient Teaching Methods: Demonstration, Discussion Response to Teaching: Verbalize Understanding, Return Demonstration OT Lung Puller Goals Mcc Goals Time Frame: Dec 14, 2019 Eating (QC): 6 Oral Hygiene (QC): 6 Toileting Hygiene (QC): 4 Shower/Bathe Self (QC): 4 Upper Body Dressing (QC): 4 Lower Body Dressing (QC): 4 On/Off Footwear (QC): 4 Additional Goals: 1-Demonstrate ADL Tasks, 2-Verbalize Understanding, 3- ImproveStrength/Abiel 1=Demonstrate adherence to instructed precautions during ADL tasks. 2=Patient will verbalize/demonstrate understanding of assistive devices/modifications for ADL. 3=Patient will improve strength/tolerance for activity to enable patient to perform ADL's. OT Education/Plan Problem List/Assessment Assessment: Decreased Activ Tolerance, Decreased UE Strength, Dependent Transfers, Impaired Bed Mobility, Impaired Cognition, Impaired Funct Balance, Impaired I ADL's, Impaired Self-Care Skills Discharge Recommendations Plan/Recommendations: Continue POC Therapy Discharge Recommendati: 24 Hour Supervision Treatment Plan/Plan of Care Treatment,Training & Education: Yes Patient would benefit from OT for education, treatment and training to promote independence in ADL's, mobility, safety and/or upper extremity function for ADL's. Plan of Care: ADL Retraining, Functional Mobility, UE Funct Exercise/Act Treatment Duration: Dec 14, 2019 Frequency: 5 times per week Estimated Hrs Per Day: .25 hour per day Agreement: Yes Rehab Potential: Guarded Time/GCodes Start Time: 14:20 Stop Time: 14:38 Total Time Billed (hr/min): 18 Billed Treatment Time 1, ADL (18) BJ BOYER OTR Dec 05, 2019 14:47
[2019-12-05 16:30] VITALS: BP 130/77
[2019-12-05 19:37] VITALS: BP 173/95
[2019-12-06] MEDS: CHOLESTYRAMINE 4 GM (QUESTRAN LITE, PREVALITE) PKT PO SCH (00:29)
[2019-12-06 00:31] VITALS: BP 106/57
[2019-12-06 03:51] VITALS: BP 161/80
[2019-12-06] MEDS: inSUlin ASPART (NovoLOG) 1 UNIT/0.01 ML (CHARGE PER UNIT) SC SCH (05:46)
[2019-12-06 08:00] VITALS: BP 150/89
[2019-12-06] MEDS: LATANOPROST 0.005% (XALATAN) OPHTH SOLN 2.5 ML OU SCH (08:03)
[2019-12-06] MEDS: SINEMET 25/100 (CARBIDOPA/LEVODOPA) TAB PO SCH (08:03)
[2019-12-06] MEDS: DONEPEZIL 10 MG (ARICEPT) TAB PO SCH (08:03)
[2019-12-06] MEDS: MEMANTINE 10 MG (NAMENDA) TABLET PO SCH (08:03)
[2019-12-06] MEDS: LACTOBACILLUS ACIDOPHILUS (PROBIOTIC) CAPSULE PO SCH (08:03)
[2019-12-06] MEDS: ASPIRIN E.C. 81 MG (ECOTRIN) TAB PO SCH (08:03)
[2019-12-06] MEDS: LEVETIRACETAM INJECTION 500 MG in NS (IVPB) 100 ML IV SCH (08:04)
--- NOTE | 2019-12-06 09:30 | Discharge Summary ---
Diagnosis/Chief Complaint Date of Admission Dec 03, 2019 at 16:35 Date of Discharge Admission Diagnosis Subacute CVA Primary Care Dimas Aguilar MD Discharge Diagnosis (1) Hyperglycemia Status: Chronic (2) Parkinson disease Status: Chronic (3) CVA (cerebral vascular accident) Status: Acute Discharge Summary Discharge Physical Exam Allergies: Coded Allergies: No Known Drug Allergies (Unverified , 09/08/13) Vitals & I&Os Vital Signs Date Time Temp Pulse Resp B/P (MAP) Pulse Ox O2 Delivery O2 Flow Rate FiO2 12/06/19 11:20 12/06/19 08:00 36.1 70 16 94 Room Air 12/04/19 21:00 2.00 Hospital Course Labs (last 24 hrs) Microbiology 12/03/19 Blood Culture - Preliminary, Resulted No growth 12/03/19 Influenza Types A,B Antigen (KENISHA) - Final, Complete Patient resulted labs reviewed. Pending Labs Imaging: Reviewed Imaging Report Discharge Home Medications: Active Scripts Active Xanax (Alprazolam) 0.25 Mg Tablet 0.25 Mg PO Q8H PRN Keppra (Levetiracetam) 500 Mg Tablet 500 Mg PO BID Aspirin EC (Aspirin) 81 Mg Tablet.dr 81 Mg PO DAILY Lipitor (Atorvastatin Calcium) 40 Mg Tablet 40 Mg PO HS Reported Donepezil HCl 10 Mg Tablet 10 Mg PO DAILY Probiotic-Digestive Enzymes (L. Acidophilus/Dig Enz Cmb 5) 1 Each Capsule 2 Cap PO TID Amoxicillin 500 Mg Tablet 2,000 Mg PO UD PRN Multivitamins (Multivitamin) 1 Each Tablet 1 Tab PO DAILY Latanoprost 2.5 Ml Drops 1 Drop OU HS Tylenol (Acetaminophen) 325 Mg Tablet 650 Mg PO Q4H PRN Sinemet 25-100 mg Tablet (Carbidopa/Levodopa) 1 Each Tablet 1 Tab PO HS PRN Lexapro (Escitalopram Oxalate) 20 Mg Tablet 20 Mg PO 1600 Namenda (Memantine HCl) 10 Mg Tablet 10 Mg PO 0800,1600 Sinemet 25-100 mg Tablet (Carbidopa/Levodopa) 1 Each Tablet 1 Tab PO 0800,1200,1600 Questran Packet (Cholestyramine (with Sugar)) 4 Gm Powd.pack 4 Gm PO BID Tessalon Perle (Benzonatate) 100 Mg Capsule 200 Mg PO Q8H PRN Iprat-Albut 0.5-3(2.5) mg/3 ml (Ipratropium/Albuterol Sulfate) 3 Ml Ampul.neb 3 Ml NEB Q4H PRN Myrbetriq (Mirabegron) 25 Mg Tab.er.24h 25 Mg PO DAILY Instructions to patient/family Please see electronic discharge instructions given to patient. Clinical Quality Measures DVT/VTE Risk/Contraindication: Risk Factor Score Per Nursin RFS Level Per Nursing on Admit: 2=Moderate Problem Qualifiers (1) CVA (cerebral vascular accident): CVA mechanism: unspecified Qualified Codes: I63.9 - Cerebral infarction, unspecified CHAVEZ BLANKENSHIP MD Dec 06, 2019 09:30
--- NOTE | 2019-12-06 09:38 | Discharge Inst-Skilled Nursing ---
Discharge Inst-Skilled NF Chief Complaint patient is an 89-year-old male who was admitted due to altered mental status. He was admitted in assisted living facility at [facility] and reportedly was his normal self yesterday morning and went to his room after breakfast but wasn't found at 9 a.m. by physical therapy and was altered. They said he was staring at them and did not respond but was alert. He was brought to the ER stroke activation. CT head was done which was negative. His mentation improved he was able to answer some questions but was very slow. Chest x-ray and UA did not reveal any sources of infection. He was admitted for a stroke rule out an MRI was done. 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 I discussed these results with his family report that the symptoms have been going on for at least a couple of weeks but just worsened yesterday. They had actually been looking at a memory care unit out near their home outside of [place] due to his decline. Patient Instructions Patient Problems: Stroke, Dementia, Parkinson's Disease Consult/Follow Up/Orders Follow Up Appt.: With Dr Aguilar in 1 week. Skilled NF Admit to: [facility] Certification (SNF) I certify that SNF services are required to be given on an inpatient basis because of the above named patient's need for retirement care on a continuing basis for the conditions(s) for which he/she was receiving inpatient hospital services prior to his/her transfer to the SNF. Assisted Facility Order: Nursing Services, Restaurant Managing Partner-Evaluate & Treat, Physical Therapy-Evaluate & Treat Oxygen Delivery Method: Room Air Discharge Diet: No Restrictions Daily Activity as Tolerated: Yes Resuscitation Status: Do Not Resuscitate New & Resume Previous Orders Chavez Blankenship Dec 06, 2019 09:37 CHAVEZ BLANKENSHIP MD Dec 06, 2019 09:38
[2019-12-06] MEDS ORDERED: ATOR40TA PO (09:43)
[2019-12-06] MEDS ORDERED: ASPI-983 PO (09:43)
[2019-12-06] MEDS ORDERED: LEVE500T99 PO (09:43)
--- NOTE | 2019-12-06 10:28 | NUR ---
FINAL DISCHARGE PLAN: Patient to be discharged to [facility] this morning, SKILLED status. UnFinalized discharge orders have been sent and Care Assessment is being done now and will also be sent on completion. Patient will be picked up at 1130 this morning.
[2019-12-06] MEDS ORDERED: LEVETIRACETAM 500 MG (KEPPRA) TAB PO NR (10:30)
--- NOTE | 2019-12-06 11:18 | NUR ---
CM/SS: Level 1 CARE assessment completed Plan: Pt will be discharged to [facility] for a skilled stay Summary: Level 1 CARE assessment completed, pt will return to [facility] as he has lived there previously on the Assisted Living side. He will return to the senior living side for a skilled placement stay, and if able will return to Assisted Living side, or if pt declines he will be admitted to [facility]. Information has been previously sent to Hospice based on his declined health status when inpatient here. Facility was here to picker packer pt around 11:10am.
[2019-12-06] MEDS ORDERED: ALPR0.25 PO (12:26)
== END 2019-12-06 11:20 | DRG 66 ==
LOC: EDUNIT# 11:05 → ER 11:07 → CSD 14:10 → OBSVTOIN 16:35
PROVIDERS: ADMIT Family Medicine; ATTEND Family Medicine
DX: I63.9 Cerebral infarction, unspecified (principal); H40.9 Unspecified glaucoma; D69.59 Other secondary thrombocytopenia; F10.11 Alcohol abuse, in remission; R09.02 Hypoxemia; R73.9 Hyperglycemia, unspecified; M19.90 Unspecified osteoarthritis, unspecified site; Z66 Do not resuscitate; G20 Parkinson's disease; F02.80 Dementia in other diseases classified elsewhere, unspecified severity, without behavioral disturbance, psychotic disturbance, mood disturbance, and anxiety
CPT/HCPCS: 36415; 51702; 70450; 70551; 71045; 80048; 80053; 80061; 80306; 80320; 81000; 82962; 83605; 83735; 83880; 84443; 84484; 85025; 85027; 85379; 85610; 85730; 87040; 87804; 93005; 93041; 93306